=== PATIENT | female | born 1985 | race Caucasian/White ===

== ENCOUNTER 2018-09-06 11:08 | Emergency (ER) | payer OTHER, SELFPAY ==
[2018-09-06 11:09] VITALS: BP 134/78; PULSE 107; RESP 16; TEMP 36.6; O2SAT 98; BMI 36.0
--- NOTE | 2018-09-06 11:37 | ED.DCSUM_ITS ---
- ER Visit Summary Date of Service: 09/06/18 Chief Complaint: Abdominal pain History of Present Illness: The patient is a 32 F with abdominal pain that started around 6:30 AM today. It feels like her contractions with previous pregnancies. She is at 17 weeks. She denies any vaginal bleeding or disc harge. The pain happens about every 6 minutes and last for 1-2 minutes. Patient has a history of high blood pressure and is being treated with labetalol and aspirin. Denies any other symptoms. Physical Examination: Afebrile and vital signs unremarkable except a blood pressure of 134/78 and heart rate of 107. Alert and oriented. No acute distress. Skin appears normal. Heart tachycardic but regular. Lungs clear. Abdomen gravid but nontender. Test Results: We will check labs, urine, heart tones. Emergency Department Course and Treatment: Patient treated with fluids while awaiting results. Will check labs, urine, heart tones and discuss with [employer] STATE. heart tones 148. Blood work all largely unremarkable. Urinalysis unremarkable except for 1+ bacteria. I spoke with Dr. Cruz. She will be down to perform a speculum exam. I notified nursing to prepare the patient. Treatment Plan: As above Disposition: Pending [employer] evaluation Impression: 1. Abdominal pain 2. This note was generated with [employer] dictation software. It may contain incorrect words, spelling, and punctuation that were not noted in review of the chart prior to signing ED Disposition - Plan for ED Patient: Chief Complaint: Referrals: [facility] Doctor,Out of [NON-STAFF] -
[2018-09-06] MEDS: 0.9% Normal Saline 1,000 ML 1000 ML IV (12:13)
[2018-09-06 12:19] LABS: Absolute Lymphocyte Count 0.54 X10^3/ul (0.83-4.51); Absolute Neutrophil Count 5.7 X10^3/uL (2.0-7.7); Differential Indicated SCAN CRITERIA MET; Eosinophil# 0.05 X10^3/uL; Eosinophils% 0.8 % (0-5); Hematocrit 34.9 % (37-47); Hemoglobin 11.6 g/dl (12.0-15.0); Lymphocyte # 0.54 X10^3/ul (4.0); Lymphocyte % 8.2 % (19-41); Mean Corp Hgb Conc 33.2 g/gl (32-36); Mean Corpuscular Hgb 27.6 pg (27.0-32.0); Mean Corpuscular Volume 83.1 fL (81-99); Monocyte# 0.26 X10^3/uL; Neutrophil # 5.71 X10^3/uL (2.7-7.7); POSITIVE COUNT NO; POSITIVE DIFFERENTIAL YES; POSITIVE MORPHOLOGY NO; Platelet Count 183 K/mm3 (150-450); RBC Distribution Width CV 13.7 % (11.6-14.6); RBC Distribution Width SD 40.4 fl (35.1-43.9); White Blood Count 6.6 K/mm3 (4.4-11.0)
[2018-09-06 12:33] LABS: ALB/GLOB Ratio 0.7 RATIO (0.9-2.4); AST(SGOT) 19 U/L (15-37); Alanine Aminotransfer ALT/SGPT 25 U/L (13-56); Albumin, Serum 2.8 g/dL (3.2-5.0); Alkaline Phosphatase 99 U/L (45-117); Anion Gap 8 (5-15); BUN 8 mg/dL (7-18); BUN/Creat Ratio 13.3 RATIO (10-20); Calcium,Total 8.7 mg/dL (8.5-10.1); Chloride 104 mmol/L (98-107); EST Glomerular Filtration Rate 122 mL/min (>60); Est Glom Filt Rate - Afr Amer 148 mL/min (>60); Estimated Creatinine Clearance 117.31 ml/min; Globulin 4.3 g/dL (2.2-4.2); Glucose 91 mg/dL (74-106); Lipase 62 U/L (73-393); Potassium 3.7 mmol/L (3.5-5.1); Protein, Total 7.1 g/dL (6.4-8.2); Sodium Level 138 mmol/L (136-145)
[2018-09-06 12:47] LABS: Mucous, Urine 0 SEEN /hpf (<or=2+); Red Blood Cells-Urine 0 SEEN /hpf (0-5); White Blood Cells 0 SEEN /hpf (0-5)
[2018-09-06 12:56] LABS: Color, Urine Yellow (Yellow); Glucose, Dipstick Normal (Normal); Ketone-Dipstick Negative (Negative); Leukocyte Esterase-Dipstick Negative /ul (Negative); Nitrite-Dipstick Negative (Negative); Occult Blood-Urine Negative /ul (Negative); Protein-Dipstick Negative (Negative); Specific Gravity, Urine 1.015 (1.002-1.030); Urine Bilirubin Dipstick Negative (Negative); Urine Clarity Sl. Cloudy (Clear); Urine Urobilinogen Normal (Normal)
[2018-09-06 13:02] LABS: Squamous Epithelial Cells - UA 0-5 SEEN /hpf (5-10)
[2018-09-06 13:03] LABS: Bacteria 1+ /hpf (None Seen)
--- NOTE | 2018-09-06 13:45 | ED.DEP ---
ED Disposition - Plan for ED Patient: Chief Complaint: Instructions: ED Labor Premature Referrals: Samaria Barnes MD [STAFF PHYSICIAN] -
[2018-09-06 14:41] VITALS: BP 137/78; PULSE 85; RESP 16; TEMP 36.7; O2SAT 100
--- OUTSIDE RECORDS SUMMARY | 2018-10-23 13:12 | XMS RPT_ITS ---
:1985 Author Organization OHIP Care Team Providers Name Role Phone MARY MULLINS Attending Unavailable NEYJCARLOST FOUNTAIN, MARY Referring Unavailable JO SPARKS Attending Unavailable NEYJCARLOST FOUNTAIN, MARY Referring Unavailable NEYJCARLOST FOUNTAIN, MARY Attending Unavailable NEYGO FOUNTAIN, MARY Referring Unavailable DEYSIYGO FOUNTAIN, MARY Referring Unavailable MIKE DELGADO Attending Unavailable BATOOL FOUNTAIN, MARY Attending Unavailable MIKE DELGADO Attending Unavailable BATOOL FOUNTAIN, MARY Attending Unavailable MIKE DELGADO Attending Unavailable KEISHA MCINTYRE Attending Unavailable NEYHART FOUNTAIN, MARY Referring Unavailable NEYHART FOUNTAIN, MARY Attending Unavailable NEYJCARLOST FOUNTAIN, MARY Referring Unavailable JO SPARKS Attending Unavailable NEYHART FOUNTAIN, MARY Referring Unavailable NEYHART FOUNTAIN, MARY Referring Unavailable NEYHART FOUNTAIN, MARY Referring Unavailable Marciano Ramirez Attending Unavailable Mike Delgado Primary Care Unavailable PROBLEMS PROBLEMS DATE TYPE CONDITION / CODE ATTENDING STATUS SOURCE 08/08/2018 Active Encounter for NA Active [facility] Main [place] screening for Repository nuchal translucency / Z36.82(ICD-10) 07/07/2018 Active Obesity NA Active [facility] complicating Main [place] , Repository unspecified trimester / O99.210(ICD-10) 07/25/2018 Active Unspecified NA Active [facility] pre-existing [facility] hypertension Repository complicating , unspecified trimester / O10.919(ICD-10) 07/25/2018 Active Supervision of NA Active [facility] high risk [facility] , Repository unspecified, first trimester / O09.91(ICD-10) 07/25/2018 Active 9 weeks gestation NA Active [facility] of / [facility] [place] Z3A.09(ICD-10) Repository 11/08/2017 Active Unknown / KEISHA MCINTYRE Active [facility] UNK(Unknown) R [facility] Repository PROCEDURES PROCEDURES No Procedure Records FoundRESULTS RESULTS PROGRESS Observed: 09/15/2018 Status: COMPLETED Source: [place] 10:31 AM [facility] REPOSITORY HNO ID: [id number] Author: Jo Sparks Service: (none) Author Type: Physician Type: Progress Notes Filed: 09/15/2018 10:34 AM Note Text: A mccann? fetus in utero with symmetric measurements Adequate growth (AGA). Estimated Date of Delivery: 02/11/19 EGA = 18w5d The anatomy appears normal. There are no evident malformations and /or effusions. No genetic markers are noted. The amniotic fluid volume is within normal limits. The sensitivity of ultrasound in the detection of malformations overall is approximately 35%. RECOMMENDATIONS: - Follow up ultrasound as clinically indicated CNPN Observed: 2018 Status: COMPLETED Source: [place] 12:00 AM [facility] REPOSITORY Telephone (FAMDNA) SHELIA VILLEDA ([id number]) 1985 F Date Time Provider Department 09/13/18 KEISHA MCINTYRE During your visit today, we recorded the following information about you: Cassie Lee Wilfrid 2018 2:11 PM Signed Form on docs desk/basket for review from [facility]. Please review and route back to [place] to be scanned. Mike Delgado MD 2018 7:28 PM Signed Seen in ER at [place] for abn pain Pending GEOMORPHOLOGY TEACHER evaluation Sent for scaning TRK Allergies As of Date: 2018 Noted Allergy Reaction PENICILLINS 07/07/2018 6 - Diarrhea Date Reviewed: 09/05/2018 Reviewed by: Lakeisha Rollins Ma - Fully Assessed Reason for Visit: Received Outside Medical Records [[id number]] Cmt: [facility]-ER Discharge Summary Prescriptions as of 2018 Sig: CHOLECALCIFEROL (VITAMIN D3) * Take 1 capsule by mouth once * LABETALOL 200 MG TABLET TKAE 1/2 TABLET BY MOUTH EVER* VITAMIN,CALCIUM,MINE* Take 1 tablet by mouth. SERTRALINE 50 MG TABLET Take 1 tablet by mouth once d* Problem List As Of Date 2018 Noted Resolved Adjustment disorder with mixed anxiety and depr*INVALID FOR*11/04/2015 Supervision of normal [Z34.90] INVALID FOR*08/21/2015 Chronic hypertension in [O10.919] INVALID FOR*06/06/2017 Vaginal bleeding in patient at less th*INVALID FOR*11/04/2015 More... HTN in , chronic [O10.919] INVALID FOR*11/04/2015 High-risk [O09.90] INVALID FOR*11/04/2015 Elevated LFTs [R94.5] INVALID FOR*11/04/2015 More... Cholestasis of in third trimester [O2*INVALID FOR*11/04/2015 More... Positive GBS test [B95.1] INVALID FOR*11/04/2015 Essential hypertension [I10] INVALID FOR* Anxiety [F41.9] INVALID FOR* Chronic pre-existing hypertension during pregna*INVALID FOR* More... Obesity in [O99.210] INVALID FOR* More... History of anxiety [Z86.59] INVALID FOR* More... Patient requested diagnostic testing [Z01.89] INVALID FOR* More... History of cholestasis during [Z87.59*INVALID FOR* More... Encounter Status:Closed by CASSIE LEE MA on 09/13/18 DISCHARGE INSTRUCTION Observed: 09/06/2018 Status: F Source: [place] 3:36 PM [facility] REPOSITORY [facility] Medical Records Department [address] [place] [address] Discharge Instruction 09/06/18 1345 MR#: [id number] Acct: [id number] Name: SHELIA VILLEDA Rep #: [id number] : 1985 32 From: Marciano Ramirez MD PCP: Mike Delgado Status: DEP ER ED Disposition - Plan for ED Patient: Chief Complaint: Instructions: ED Labor Premature Referrals: Mary Barnes MD [STAFF PHYSICIAN] - What to do if you have Problems For any increased pain, shortness of breath, bleeding, nausea or vomiting, chest pain, or any unexpected problems, contact your Primary Care Provider. Call [facility] ([phone]) or report to the closest Emergency Room. Call 911 if necessary. 09/06/18 1536 <Electronically signed by Marciano Ramirez MD> Date Marciano Ramirez MD Cosigner Signature (If Indicated): Date CC: Mike Delgado EMERGENCY DEPARTMENT Observed: 09/06/2018 Status: F Source: [place] SUMMARY 3:36 PM [facility] REPOSITORY [facility] Medical Records Department [address] [place] [id number] Emergency Department Summary 09/06/18 1136 MR#: [id number] Acct: [id number] Name: SHELIA VILLEDA Rep #: [id number] : 1985 32 From: Marciano Ramirez MD PCP: Mike Delgado Status: DEP ER - ER Visit Summary Date of Service: 09/06/18 Chief Complaint: Abdominal pain History of Present Illness: The patient is a 32 F with abdominal pain that started around 6:30 AM today. It feels like her contractions with previous pregnancies. She is at 17 weeks. She denies any vaginal bleeding or discharge. The pain happens about every 6 minutes and last for 1-2 minutes. Patient has a history of high blood pressure and is being treated with labetalol and aspirin. Denies any other symptoms. Physical Examination: Afebrile and vital signs unremarkable except a blood pressure of 134/78 and heart rate of 107. Alert and oriented. No acute distress. Skin appears normal. Heart tachycardic but regular. Lungs clear. Abdomen gravid but nontender. Test Results: We will check labs, urine, heart tones. Emergency Department Course and Treatment: Patient treated with fluids while awaiting results. Will check labs, urine, heart tones and discuss with REPACKER. heart tones 148. Blood work all largely unremarkable. Urinalysis unremarkable except for 1+ bacteria. I spoke with Dr. Cruz. She will be down to perform a speculum exam. I notified nursing to prepare the patient. Treatment Plan: As above Disposition: Pending REPACKER evaluation Impression: 1. Abdominal pain 2. This note was generated with uPartsation software. It may contain incorrect words, spelling, and punctuation that were not noted in review of the chart prior to signing ED Disposition - Plan for ED Patient: Chief Complaint: Referrals: [facility] Doctor,Out of [NON-STAFF] - What to do if you have Problems For any increased pain, shortness of breath, bleeding, nausea or vomiting, chest pain, or any unexpected problems, contact your Primary Care Provider. Call [facility] ([phone]) or report to the closest Emergency Room. Call 911 if necessary. 09/06/18 1536 <Electronically signed by Marciano Ramirez MD> Date Marciano Ramirez MD Cosigner Signature (If Indicated): Date CC: Mike Delgado URINALYSIS, COMPLETE Collected: 09/06/2018 Status: F Source: [place] 12:35 PM [facility] REPOSITORY Order Comment: Order Date: 09/06/18 How was Urine Obtained? CLEAN CATCH TYPE CODE TESTS RESULT OUT OF RANGE REFERENCE UNITS LAB L400.3000 Yellow COLOR Normal Yellow LAB L400.3050 Clear Normal CLARITY Sl. Cloudy LAB L400.3200 Normal mg/dl Normal GLUCOSE, UR Normal LAB L400.3300 Negative mg/dL Normal BILIRUBIN URINE Negative LAB L400.3400 Negative mg/dl Normal KETONE UR Negative LAB L400.3465 1.002-1.030 Normal SP.GR. DIPSTX 1.015 LAB L400.3550 5.0 - 8.0 pH UR Normal 6.0 LAB L400.3600 Negative mg/dl PROT Normal DIPSTX Negative LAB L400.3700 Normal mg/dl Normal UROBILI Normal LAB L400.3750 Negative Normal NITRITE UR Negative LAB L400.3780 Negative /ul Normal OCCULT BLOOD-UR Negative LAB L400.3800 Negative /ul LEUK Normal ESTERASE Negative LAB L400.4050 0-5 /hpf WBC 0 Normal SEEN LAB L400.4100 0-5 /hpf 0 Normal RBC-UA SEEN LAB L400.4150 5-10 /hpf SQUAM Normal EPI 0-5 SEEN LAB L400.4300 None Seen /hpf 1+ Normal BACTERIA LAB L400.4350 <or=2+ /hpf 0 Normal MUCUS, URINE SEEN Performed By: #### L400.0001 #### [facility] [address] [place], [place], [address] CBC W/DIFF, AUTOMATED Collected: 09/06/2018 Status: F Source: [place] 12:00 PM [facility] REPOSITORY TYPE CODE TESTS RESULT OUT OF RANGE REFERENCE UNITS LAB L100.1000 4.4-11.0 K/mm3 Normal WBC 6.6 LAB L100.1200 4.2-5.4 M/mm3 Normal RBC 4.20 LAB L100.1300 12.0-15.0 g/dl Low HGB 11.6 LAB L100.1400 37-47 % Low HCT 34.9 LAB L100.1500 81-99 fL Normal MCV 83.1 LAB L100.1600 27.0-32.0 pg Normal MCH 27.6 LAB L100.1700 32-36 g/gl Normal MCHC 33.2 LAB L100.1810 11.6-14.6 % Normal RDW CV 13.7 LAB L100.1820 35.1-43.9 fl Normal RDW SD 40.4 LAB L100.1900 150-450 K/mm3 Normal PLT 183 LAB L100.2000 6.2-12.0 fl Normal MPV 11.0 LAB L100.2100 47-70 % High NEUT% 87.0 LAB L100.2200 19-41 % Low LY% 8.2 LAB L100.2300 0-10 % Normal MONO% 4.0 LAB L100.2400 0-5 % Normal EO% 0.8 LAB L100.2500 0-1 % Normal BASO% 0.0 LAB L100.2550 0.0-0.9 % Normal IM GRAN % 0.000 Result Comment: IG% - Immature Granulocytes (promyelocytes, myelocytes and metamyelocytes) > 1% indicates that a LEFT SHIFT is Present. LAB L100.2620 2.0-7.7 X10 3/uL Normal Absolute Neut 5.7 LAB L100.2720 0.83-4.51 X10 3/ul Low Absolute Lymph 0.54 Performed By: #### L100.0100 #### [facility] [address] [place], [address] COMPREHENSIVE METABOLIC Collected: 09/06/2018 Status: F Source: [facility] 12:00 PM [facility] REPOSITORY TYPE CODE TESTS RESULT OUT OF RANGE REFERENCE UNITS LAB L501.0100 74-106 mg/dL Normal GLU 91 Result Comment: Please note revised GLUCOSE reference range effective 2017. LAB L501.1000 7-18 mg/dL Normal BUN 8 LAB L501.1100 0.55-1.02 mg/dL Normal CREAT,SERUM 0.60 Result Comment: The validity of the calculated GFR AND GFRAA in patients over 70 years has not been determined. Clinical correlation is essential. LAB L501.1110 >60 mL/min Normal EST GFR 122 Result Comment: Non- GFR Calc LAB L501.1115 >60 mL/min Normal EST GFR - AA 148 Result Comment: GFR Calc LAB L501.1255 ml/min Normal Estimated CRCL 117.31 LAB L501.1300 10-20 RATIO BUN/CRE Normal 13.3 LAB L501.1500 6.4-8. g/dL 2 T PROT Normal 7.1 LAB L501.1800 3.2-5. g/dL Low 0 ALB 2.8 LAB L501.1950 2.2-4. g/dL High 2 GLOB 4.3 LAB L501.2000 0.9-2. RATIO Low 4 A/G 0.7 LAB L501.2200 8.5-10 mg/dL .1 CA Normal 8.7 LAB L501.4100 15-37 U/L AST Normal 19 LAB L501.4305 45-117 U/L ALK P Normal 99 LAB L501.4405 13-56 U/L ALT Normal 25 LAB L501.4600 0.20-1 mg/dL .00 T BILI Normal 0.30 LAB L501.5300 136-14 mmol/L 5 NA Normal 138 LAB L501.5600 3.5-5. mmol/L 1 K Normal 3.7 LAB L501.5900 98-107 mmol/L CL Normal 104 LAB L501.6100 21.0-3 mmol/L 2.0 CO2 Normal 26.0 LAB L501.6200 5-15 GAP Normal 8 Performed By: #### L500.4050, L501.2450 #### [facility] [address] [place], [place], [address] LIPASE Collected: 09/06/2018 Status: F Source: [place] 12:00 PM [facility] REPOSITORY TYPE CODE TESTS RESULT OUT OF REFERENCE UNITS RANGE LAB L501.2450 73-393 U/L Low LIPASE 62 Performed By: #### L500.4050, L501.2450 #### [facility] [address] [place], [address] SEQUENT SCRN SECOND Collected: 09/05/2018 Status: F Source: [facility] PATIENTS ONLY 3:32 PM [facility] REPOSITORY TYPE CODE TESTS RESULT OUT OF REFERENCE UNITS RANGE LAB SE1PAP MoM 0.56 SE1 EMMETT A LAB SE2AFP MoM 1.04 SE2 AFP LAB SE2HCG MoM 3.14 SE2 hCG LAB SE2UE3 MoM 1.18 SE2 Unconj uE3 LAB SE2INH MoM 1.76 SE2 Dimrc Inhibin A LAB SE1HCG MoM 1.65 SE1 hCG LAB SE2INT Screen Negative SE2 Interp Screen Negative LAB SE2SDN SE2 Scrn Rsk 1:8700 Dn Synd LAB SE2ADN 1:540 SE2 Age Rsk Dn Snyd LAB SE2STS SE2 Scr Rsk <1:08650 Trsmy 13 LAB SE2STR SE2 Scr Rsk <1:59105 Trsmy18 LAB SE2SON SE2 Scr Rsk 1:7700 ONTD LAB SE2RS View Seq Scrn results in Second Trim Scanned Documents link when available. LAB SEQLRV SEQ Staff Reviewed by Review Christian Fernandez MD, PhD ([id number]) Performed By: #### SEQL2 #### [facility] [address] [place] [id number] PROGRESS Observed: 08/08/2018 Status: COMPLETED Source: [place] 3:12 PM [facility] REPOSITORY HNO ID: [id number] Author: Jo Sparks Service: (none) Author Type: Physician Type: Progress Notes Filed: 08/08/2018 3:13 PM Note Text: A single intrauterine gestational sac is noted with a regular outline. There is no decidual hemorrhage. The yolk sac is visualized and shows normal shape and echogenicity. A living single fetus is noted. The heart rate is within normal range. The CRL corresponds to the gestational age. Estimated Date of Delivery: 02/11/19 EGA = 13w2d Negative NT screen for Trisomy 21. The sensitivity of nuchal translucency measurement for Trisomy 21 is ~60%. The anatomy appears normal in the areas visualized. RECOMMENDATIONS: - The patient requested the sequential screening. The test has been ordered - Ultrasound examination at 18 to 20 weeks SEQUENT SCRN FIRST Collected: 08/08/2018 Status: F Source: [place] [facility] PATIENTS ONLY 2:48 PM [facility] REPOSITORY TYPE CODE TESTS RESULT OUT OF REFERENCE UNITS RANGE LAB SE1PAP MoM 0.56 SE1 EMMETT A LAB SE1HCG MoM 1.65 SE1 hCG LAB SE1INT Final result pending second Final trimester SE1 result pending sample Interp second trimester sample LAB SE1SDN 1:560 SE1 Scrn Rsk Dn Synd LAB SE1ADN 1:400 SE1 Age Rsk Dn Synd LAB SE1STR SE1 Scr <1:00684 Rsk Trsmy18 LAB SE1ATR SE1 Age 1:1700 Rsk Trsmy18 LAB SE1RS View Seq Scrn results in First Trim Scanned Documents link when available. LAB SEQLRV SEQ Staff Reviewed by Review Christian Fernandez MD, PhD ([id number]) Performed By: #### SEQL1 #### [facility] [address] [place], [place] [address] PROGRESS Observed: 08/08/2018 Status: COMPLETED Source: [place] 1:33 PM [facility] REPOSITORY HNO ID: [id number] Author: Lakeisha Rollins Ma Service: (none) Author Type: (none) Type: Progress Notes Filed: 08/08/2018 2:38 PM Note Text: 32 year old female here for INACTIVATED INFLUENZA VACCINE. [id number] Season Patient is identified by name and date of : Yes [] CONTRAINDICATIONS color enhanced section Age less than 6 months? No Allergy to eggs, chicken, chicken feathers, or chicken dander? No Allergy to thimerosal (a preservative) or formaldehyde, gelatin? No History of severe reaction to any vaccine component or a previous dose of influenza vaccination? No History of Guillain-[place] Syndrome within 6 weeks after a previous influenza vaccine? No Patient is not moderately or severely ill? No Current temperature greater or equal to 100.4F? No History of Bone Marrow Transplant prior 6 months or solid organ transplant in the past 3 months ? No History of fainting after a prior injection or medical procedure? No- ? If patient has fainted in the past, the CDC recommends sitting or lying down for 15 minutes after the vaccination. [] VERIFICATION color enhanced section Was the answer Yes for any of the above contraindications? No contraindications present. Acceptable to proceed with vaccine. Patient/guardian agrees the above answers are true to the best of their knowledge? Yes Flu vaccine information sheet given? Yes [facility] for details of immunizations adminstered today. Patient age: [age] year old For The 0406-1019 Flu Season 6-35 months old: Fluzone 0.25 ml - IM (Preservative Free) 3 years of age: Fluzone 0.5 ml - IM (Preservative Free) 3 years and older: Fluzone 0.5 ml- IM-(with Preservatives) 65+ years old: 2-49 years old Fluzone High-Dose 0.5 ml - IM (Preservative Free) FLUMIST- intranasal REMEMBER: If patient is less than 9 years of age and this is the first vaccine of Influenza to be received in any flu season, they should receive a second dose in one months time. PERIOD AND VOLUME Collected: 07/25/2018 Status: F Source: [place] 7:35 AM [facility] REPOSITORY TYPE CODE TESTS RESULT OUT OF REFERENCE UNITS RANGE LAB PER hr Period 24 LAB VOL mL Volume 900 Performed By: #### UTP24 #### [facility] [address] [place] [id number] PROTEIN URINE 24 HR Collected: 07/25/2018 Status: F Source: [place] 7:35 AM [facility] REPOSITORY TYPE CODE TESTS RESULT OUT OF REFERENCE UNITS RANGE LAB TP24GM <0.16 gm/24 Hr Protein Urine 0.07 Performed By: #### UTP24 #### [facility] [address] [place] [address] PROGRESS Observed: 07/15/2018 Status: COMPLETED Source: [place] 3:05 PM [facility] REPOSITORY HNO ID: [id number] Author: Mike Delgado Service: (none) Author Type: Physician Type: Progress Notes Filed: 07/15/2018 3:15 PM Note Text: Shelia Villeda is a 32 year old female presenting for Established Patient (Pt states here for med review) She is here for follow up She has been taking the zoloft Does seem to be working well She just feels calmer Better able to deal with things Has no side effects Less anxiety, less stress No issues with BP Has been doing the lebatalol with no issues Patient has been trying to watch her diet and remain active Patient is currently and is due in January Has discussed above medications with OB and they are okay HISTORIES: PAST MEDICAL HISTORY Diagnosis Date - Anemia - Cholestasis of in third trimester 08/15/2015 - Chronic hypertension in 04/01/2015 - H/O: depression took Wellbutrin in the past - History of anxiety - Hypertension - Mental disorder PAST SURGICAL HISTORY Procedure Laterality Date - EXTRACTION ERUPTED TOOTH/EXR 2010 wisdom teeth x 3 FAMILY HISTORY Problem Relation Age of Onset - Cancer Mother ovarian CA - Alcohol/Drug Father - Psychiatry Father [place] Vet - Hypertension Father - Heart Father - other (atherosclerosis) Father - Hypertension Sister - Heart Maternal Grandmother - No Known Problems Maternal Grandfather - Diabetes Paternal Grandmother - Cancer Paternal Grandmother - Colon Cancer Paternal Grandfather Social History: Social History Substance Use Topics - Smoking status: Never Smoker - Smokeless tobacco: Never Used - Alcohol use 1.5 oz/week 1 Mixed Drinks per week Comment: Rare-NONE WHILE Allergies: ALLERGIES Allergen Reactions - Penicillins Diarrhea Medications: sertraline (ZOLOFT) 50 mg tablet Take 1 tablet by mouth once daily. labetalol (TRANDATE) 200 mg tablet TKAE 1/2 TABLET BY MOUTH EVERY MORNING AND TAKE 1 TABLET EVERY EVENING Cholecalciferol, Vitamin D3, (VITAMIN D-3) 2,000 unit cap Take 1 capsule by mouth once daily. Arfppbzd-Zm-Vug-Fe-FA ( VITAMIN) tab Take 1 tablet by mouth. labetalol (TRANDATE) 200 mg tablet TKAE 1/2 TABLET BY MOUTH EVERY MORNING AND TAKE 1 TABLET EVERY EVENING copper (PARAGARD T 380A) 380 square mm IUD INSERTED IN THE OFFICE REVIEW OF SYSTEMS GENERAL: No weight loss, malaise or fevers RESPIRATORY: Negative for cough, hemoptysis, wheezing, COPD, dyspnea or shortness of breath CARDIOVASCULAR: Negative for chest pain, leg swelling, hypertension, CHF or palpitations PSYCH: Negative for sleep disturbance, mood disorder and recent psychosocial stressors PHYSICAL EXAMINATION: BP 126/80 Pulse 91 Temp 36.7 ?C (98 ?F) (Oral) Resp 18 Wt 94.6 kg (208 lb 8 oz) LMP 05/07/2018 (Exact Date) SpO2 98% BMI 35.79 kg/m? General Appearance: Well appearing, alert, in no acute distress, well-hydrated, well nourished.. Psych: Appropriate mood and affect, maintains good eye contact, answers questions appropriately, does not appear stressed or anxious. ASSESSMENT/PLAN: 1. Essential hypertension - ICD9: 401.9, ICD10: I10 (primary diagnosis) Blood pressures under good control Continue same dose of labetalol Continue following regularly with blood pressure monitoring with GEOMORPHOLOGY TEACHER 2. Anxiety - ICD9: 300.00, ICD10: F41.9 Patient has been doing very well with the Zoloft 50 mg Feels much better under control with less stress and anxiety Continue with same dose for now Okay with OB with regards to taking this Mike Delgado MD Preventive health: Patient will get flu shot with her next OB visit CNOV Observed: 07/15/2018 Status: COMPLETED Source: [place] 3:00 PM [facility] REPOSITORY Office Visit (FAMDNA) SHELIA VILLEDA ([id number]) 1985 F Date Time Provider Department 07/15/18 3:00 PM MIKE DELGADO During your visit today, we recorded the following information about you: Temperature Pulse Respiration Blood pressure 98 degrees 91/minute 18/minute 126/80 Weight 94.6 kg Cassie Lee Ma 07/15/2018 2:58 PM Signed Patient presents with: Established Patient: Pt states here for med review Cassie Lee Ma 07/15/2018 3:15 PM Signed BP CONTROLLED (<130/80) due on 2004 INFLUENZA(1) due on 05/28/2018 Mike Delgado MD 07/15/2018 3:15 PM Signed Shelia [place] Christiana is a 32 year old female presenting for Established Patient (Pt states here for med review) She is here for follow up She has been taking the zoloft Does seem to be working well She just feels calmer Better able to deal with things Has no side effects Less anxiety, less stress No issues with BP Has been doing the lebatalol with no issues Patient has been trying to watch her diet and remain active Patient is currently and is due in January Has discussed above medications with OB and they are okay HISTORIES: PAST MEDICAL HISTORY Diagnosis Date - Anemia - Cholestasis of in third trimester 08/15/2015 - Chronic hypertension in 04/01/2015 - H/O: depression took Wellbutrin in the past - History of anxiety - Hypertension - Mental disorder PAST SURGICAL HISTORY Procedure Laterality Date - EXTRACTION ERUPTED TOOTH/EXR 2011 wisdom teeth x 3 FAMILY HISTORY Problem Relation Age of Onset - Cancer Mother ovarian CA - Alcohol/Drug Father - Psychiatry Father [place] Vet - Hypertension Father - Heart Father - other (atherosclerosis) Father - Hypertension Sister - Heart Maternal Grandmother - No Known Problems Maternal Grandfather - Diabetes Paternal Grandmother - Cancer Paternal Grandmother - Colon Cancer Paternal Grandfather Social History: Social History Substance Use Topics - Smoking status: Never Smoker - Smokeless tobacco: Never Used - Alcohol use 1.5 oz/week 1 Mixed Drinks per week Comment: Rare-NONE WHILE Allergies: ALLERGIES Allergen Reactions - Penicillins Diarrhea Medications: sertraline (ZOLOFT) 50 mg tablet Take 1 tablet by mouth once daily. labetalol (TRANDATE) 200 mg tablet TKAE 1/2 TABLET BY MOUTH EVERY MORNING AND TAKE 1 TABLET EVERY EVENING Cholecalciferol, Vitamin D3, (VITAMIN D-3) 2,000 unit cap Take 1 capsule by mouth once daily. Knvatyhe-Nc-Yrm-Fe-FA ( VITAMIN) tab Take 1 tablet by mouth. labetalol (TRANDATE) 200 mg tablet TKAE 1/2 TABLET BY MOUTH EVERY MORNING AND TAKE 1 TABLET EVERY EVENING copper (PARAGARD T 380A) 380 square mm IUD INSERTED IN THE OFFICE REVIEW OF SYSTEMS GENERAL: No weight loss, malaise or fevers RESPIRATORY: Negative for cough, hemoptysis, wheezing, COPD, dyspnea or shortness of breath CARDIOVASCULAR: Negative for chest pain, leg swelling, hypertension, CHF or palpitations PSYCH: Negative for sleep disturbance, mood disorder and recent psychosocial stressors PHYSICAL EXAMINATION: BP 126/80 Pulse 91 Temp 36.7 ?C (98 ?F) (Oral) Resp 18 Wt 94.6 kg (208 lb 8 oz) LMP 05/07/2018 (Exact Date) SpO2 98% BMI 35.79 kg/m? General Appearance: Well appearing, alert, in no acute distress, well-hydrated, well nourished.. Psych: Appropriate mood and affect, maintains good eye contact, answers questions appropriately, does not appear stressed or anxious. ASSESSMENT/PLAN: 1. Essential hypertension - ICD9: 401.9, ICD10: I10 (primary diagnosis) Blood pressures under good control Continue same dose of labetalol Continue following regularly with blood pressure monitoring with GEOMORPHOLOGY TEACHER 2. Anxiety - ICD9: 300.00, ICD10: F41.9 Patient has been doing very well with the Zoloft 50 mg Feels much better under control with less stress and anxiety Continue with same dose for now Okay with OB with regards to taking this Mike Delgado MD Preventive health: Patient will get flu shot with her next OB visit Mike Delgado MD 07/15/2018 3:10 PM Signed Follow up in February Call for refills if needed Get flu vaccine with GEOMORPHOLOGY TEACHER Referring Provider: SELF [200] Allergies As of Date: 07/15/2018 Noted Allergy Reaction PENICILLINS 07/07/2018 6 - Diarrhea Date Reviewed: 07/15/2018 Reviewed by: Cassie Lee Ma - Fully Assessed Reason for Visit: Established Patient [175] Cmt: Pt states here for med review Primary Visit Diagnosis:Essential hypertension [I10] Other Visit Diagnosis:Anxiety [F41.9] Prescriptions as of 07/15/2018 Sig: SERTRALINE 50 MG TABLET Take 1 tablet by mouth once d* LABETALOL 200 MG TABLET TKAE 1/2 TABLET BY MOUTH EVER* CHOLECALCIFEROL (VITAMIN D3) * Take 1 capsule by mouth once * VITAMIN,CALCIUM,MINE* Take 1 tablet by mouth. Problem List As Of Date 07/15/2018 Noted Resolved Adjustment disorder with mixed anxiety and depr*INVALID FOR*11/04/2015 Supervision of normal [Z34.90] INVALID FOR*08/21/2015 Chronic hypertension in [O10.919] INVALID FOR*06/06/2017 Vaginal bleeding in patient at less th*INVALID FOR*11/04/2015 More... HTN in , chronic [O10.919] INVALID FOR*11/04/2015 High-risk [O09.90] INVALID FOR*11/04/2015 Elevated LFTs [R94.5] INVALID FOR*11/04/2015 More... Cholestasis of in third trimester [O2*INVALID FOR*11/04/2015 More... Positive GBS test [B95.1] INVALID FOR*11/04/2015 Essential hypertension [I10] INVALID FOR* Anxiety [F41.9] INVALID FOR* Chronic pre-existing hypertension during pregna*INVALID FOR* More... Obesity in [O99.210] INVALID FOR* More... History of anxiety [Z86.59] INVALID FOR* More... Patient requested diagnostic testing [Z01.89] INVALID FOR* More... Other instructions from your clinician: Follow up in February Call for refills if needed Get flu vaccine with GEOMORPHOLOGY TEACHER Visit Notes: >> Cassie Lee Ma WedJul 15, 2018 2:56 PM Status: Signed Patient presents with: Established Patient: Pt states here for med review Medications Discontinued During This Encounter copper (PARAGARD T 380A) 380 square * 1 In* 0 11/19/2015 07/15/2018 Class: In Office Sig: INSERTED IN THE OFFICE Patient not taking: Reported on 04/07/2018 Disc: Reason for discontinue is not on file. labetalol (TRANDATE) 200 mg tablet 135 * 0 06/06/2018 07/15/2018 Sig: TKAE 1/2 TABLET BY MOUTH EVERY MORNING AND TAKE 1 TABLET EVERY EVENING Disc: Reason for discontinue is not on file. Disposition: Return in about 8 months (around 03/15/2019). Follow-up and Disposition History Recorded Encounter Status:Closed by MIKE DELGADO MD on 07/15/18 PROGRESS Observed: 07/15/2018 Status: COMPLETED Source: [place] 2:56 PM [facility] REPOSITORY HNO ID: [id number] Author: Cassie Lee Ma Service: (none) Author Type: (none) Type: Progress Notes Filed: 07/15/2018 3:15 PM Note Text: BP CONTROLLED (<130/80) due on 2004 INFLUENZA(1) due on 05/28/2018 CBC Collected: 07/13/2018 Status: F Source: [place] 11:12 AM [facility] REPOSITORY TYPE CODE TESTS RESULT OUT OF REFERENCE UNITS RANGE LAB WBC 3.70-11.00 k/uL WBC 6.71 LAB RBC 3.90-5.20 m/uL RBC 4.59 LAB HGB 11.5-15.5 g/dL Hemoglobin 12.6 LAB HCT 36.0-46.0 % Hematocrit 39.5 LAB MCV 80.0-100.0 fL MCV 86.1 LAB MCH 26.0-34.0 pG MCH 27.5 LAB MCHC 30.5-36.0 g/dL MCHC 31.9 LAB RDWCV 11.5-15.0 % RDW-CV 13.6 LAB PLTCT 150-400 k/uL Platelet Count 242 LAB MPV 9.0-12.7 fL MPV 11.9 LAB ABSNUC <0.01 k/uL Absolute nRBC <0.01 Performed By: #### CBC, HFP, HBSAG, HIV12C, RUBIGG, SYPHGX #### [place] [id number] [place] [address] HEPATIC FUNCTN PANEL Collected: 07/13/2018 Status: F Source: [place] 11:12 AM [facility] REPOSITORY TYPE CODE TESTS RESULT OUT OF REFERENCE UNITS RANGE LAB ALB 3.9-4.9 g/dL Albumin 4.3 LAB TBIL 0.2-1.3 mg/dL Bilirubin, Total 0.3 LAB CBIL <0.2 mg/dL Bilirubin,Conjuga <0.2 demarco LAB ALKP 34-123 U/L Alkaline Phosphatase 77 LAB AST 13-35 U/L AST 22 LAB ALT 7-38 U/L ALT 12 LAB TP 6.3-8.0 g/dL Protein, Total 7.7 Performed By: #### CBC, HFP, HBSAG, HIV12C, RUBIGG, SYPHGX #### [place] [address] [place] [address] HEPATITIS B SURF. AG Collected: 07/13/2018 Status: F Source: [place] 11:12 AM [facility] REPOSITORY TYPE CODE TESTS RESULT OUT OF REFERENCE UNITS RANGE LAB HBSAG Negative Hepatitis B Negative Surf. Ag Performed By: #### CBC, HFP, HBSAG, HIV12C, RUBIGG, SYPHGX #### [place] [address] [place], [place] [address] HIV 12 COMBO (AG/AB) Collected: 07/13/2018 Status: F Source: [place] 11:12 AM [facility] REPOSITORY TYPE CODE TESTS RESULT OUT OF REFERENCE UNITS RANGE LAB HVAGAB Non Reactive HIV Non Reactive 12 Ag/Ab Result Comment: (NOTE) HIV Information: [place] Rev. Code 3701.243(E): This information has been disclosed to you from confidential records protected from disclosure by state law. You shall make no further disclosure of this information without the specific, written, and informed release of the individual to whom it pertains, or as otherwise permitted by state law. A general authorization for the release of medical or other information is not sufficient for the purpose of the release of HIV test results or diagnoses. Performed By: #### CBC, HFP, HBSAG, HIV12C, RUBIGG, SYPHGX #### [facility] [address] [place] [address] RUBELLA IGG ANTIBODY Collected: 07/13/2018 Status: F Source: [place] 11:12 [facility] REPOSITORY TYPE CODE TESTS RESULT OUT OF RANGE REFERENCE UNITS LAB RUBGQL Negative Abnormal Rubella IgG Positive Alert Ab, Qual Result Comment: Sample is considered positive for IgG antibodies to rubella virus. A positive result indicates previous exposure to Rubella virus or vaccination. LAB RUBQNT Index Value Rubella IgG Ab 2.42 Result Comment: Index values are interpreted as follows: Negative specimens <0.90 Equivocol specimens 0.90 to 0.99 Positive specimens >0.99 The magnitude of the measured result is not indicative of the amount of antibody present. Performed By: #### CBC, HFP, HBSAG, HIV12C, RUBIGG, SYPHGX #### [facility] [place] [address] SYPHILIS IGG WITH Collected: 07/13/2018 Status: F Source: [facility] 11:12 AM [facility] REPOSITORY TYPE CODE TESTS RESULT OUT OF REFERENCE UNITS RANGE LAB SYPHQL Nonreactive Syphilis IgG, Nonreactive Qual Result Comment: No serological evidence of infection with T. pallidum. LAB SYPHLG AI Syphilis IgG <0.2 Result Comment: Antibody index is interpreted as follows: Non reactive SPECIMENS <=0.8 Weak reactive SPECIMENS 0.9 to 5.9 Reactive SPECIMENS >=6.0 Performed By: #### CBC, HFP, HBSAG, HIV12C, RUBIGG, SYPHGX #### [facility] [address] [place] [address] 50G, 1HR GEST. Collected: 07/13/2018 Status: F Source: [place] GSCRN 11:12 AM [facility] REPOSITORY TYPE CODE TESTS RESULT OUT OF REFERENCE UNITS RANGE LAB GLUP 74-134 mg/dL Glucose 119 Screen, Preg Result Comment: [place] [employer] Gynec[employer] (Aguirre/Coustan) guidelines state a gestational diabetes mellitus positive screen is made, in women not previously diagnosed with overt diabetes, when the 1 hr plasma glucose level is equal to or above 140 mg/dL. The [facility] Graphic [facility] recommends a 135 mg/dL cutoff. Performed By: #### GLTGST #### [place] [address] [place] [id number] TYPE AND SCR,PRENATL Collected: 07/13/2018 Status: F Source: [place] 11:12 AM [facility] REPOSITORY TYPE CODE TESTS RESULT OUT OF REFERENCE UNITS RANGE LAB %ABR A ABO/RH(D) POSITIVE LAB % Antibody NEG Screen Performed By: #### TSPN #### [place] [address] [place] [address] TOXICOLOGY SCREEN,UR Collected: 07/13/2018 Status: F Source: [place] 11:00 AM [facility] REPOSITORY TYPE CODE TESTS RESULT OUT OF REFERENCE UNITS RANGE LAB UPCP2 Negative Negative Phencyclidin e, Urine Result Comment: Cutoff threshold at 25 ng/mL. LAB UBENZ2 Negative Benzodiazepines, Ur Negative Result Comment: Cutoff threshold at 200 ng/mL. LAB UCOC2 Negative Cocaine, Negative Urine Result Comment: Cutoff threshold at 300 ng/mL. LAB UAMPH2 Negative Amphetamines, Urine Negative Result Comment: Cutoff threshold at 1000 ng/mL. LAB UTHC2 Negative Cannabinoids, Urine Negative Result Comment: Cutoff threshold at 50 ng/mL. LAB UOPI2 Negative Opiates, Negative Urine Result Comment: Cutoff threshold at 300 ng/mL. LAB UBARB2 Negative Barbiturates, Urine Negative Result Comment: Cutoff threshold at 200 ng/mL. LAB UETOH <11 mg/dL <11 Ethanol, Urine LAB UOXYC Negative Oxycodone, Negative Urine Result Comment: Cutoff threshold at 100 ng/mL. Comment: Immunoassay screen only. Cross reactivity with other substances can occur with immunoassay screening. Detection of any drug(s) in this urine toxicology panel is presumptive only. These tests are for med ical purposes only and should not be used for compliance monitoring, legal, or forensic use. Samples should be within normal physiological conditions (e.g. pH). This assay does not include adulteration/specimen validity testing. In clinical settings, confirmatory testing is at the practitioner's discretion [1]. If clinically indicated, confirmation by high specificity, quantitative methodology, which includes adulteration/spec imen validity testing, may be requested on the same specimen through Client Services ([phone]) if contacted within 48 hours of initial testing. [1]Substance Abuse and Mental Health Services Administration (2012). Clinical Drug Testing in Primary Care Technical Assistance Publication Series 32. Department of Health and Human Services, [place], p.10. These tests were developed and their performance characteristics determined by [facility]'s Mansoor Agustin [facility] ( [facility]). They have not been cleared or a pproved by the FDA. [facility] is regulated under CLIA as qualified to perform high complexity testing. These tests are used for clinical purposes. They should not be regarded as investigational or for research. Performed By: #### UTOX2 #### [facility] [address] [place] [id number] Observed: 07/13/2018 Status: F Source: [place] URINE CULTURE 11:00 AM [facility] REPOSITORY Sp. Request/Comment: - Best Practice Alert: To ensure optimal transport conditions and accurate culture results transfer urine specimens to [place] top C and S preservative tube. Culture Result - <10,000 CFU/ml Normal urogenital marti Performed By: #### URCUL #### [place] [address] GC/CHLAMYDIA AMPLIF Collected: 07/13/2018 Status: F Source: [place] 10:44 AM [facility] REPOSITORY TYPE CODE TESTS RESULT OUT OF REFERENCE UNITS RANGE LAB GCCTSR GC/Chlam Amp [facility]erv[facility] Source LAB GCAMPL GC Negative Amplification for Neisseria gonorrhoeae by amplification. LAB CLAMPL Chlamydia Negative Amplif for Chlamydia trachomatis by amplification. Performed By: #### GCCT #### [facility] [address] [place] [id number] PROGRESS Observed: 07/13/2018 Status: COMPLETED Source: [place] 10:11 AM [facility] REPOSITORY HNO ID: [id number] Author: Mary Fountain Service: (none) Author Type: Physician Type: Progress Notes Filed: 07/13/2018 11:02 AM Note Text: INITIAL OB ASSESSMENT OB Provider: Mary Fountain MD HPI: Shelia Villeda is a 32 year old female here to establish Obstetrical Care. Patient's last menstrual period was 05/07/2018 (exact date). from OB Dating Form. Cycle length: 30 days Complaints: None was planned. Obstetric History T1 L1 SAB0 TAB0 Ectopic0 Multiple0 Live Births1 Prior : never History of 4th degree laceration: No Patient's Risk Screening for delivery: History of abnormal pap: No Prior treatment for cervical dysplasia: none. 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 Patient BMI over 30? 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 sertraline (ZOLOFT) 50 mg tablet Take 1 tablet by mouth once daily. labetalol (TRANDATE) 200 mg tablet TKAE 1/2 TABLET BY MOUTH EVERY MORNING AND TAKE 1 TABLET EVERY EVENING labetalol (TRANDATE) 200 mg tablet TKAE 1/2 TABLET BY MOUTH EVERY MORNING AND TAKE 1 TABLET EVERY EVENING Cholecalciferol, Vitamin D3, (VITAMIN D-3) 2,000 unit cap Take 1 capsule by mouth once daily. copper (PARAGARD T 380A) 380 square mm IUD INSERTED IN THE OFFICE (Patient not taking: Reported on 04/07/2018 ) No current facility-administered medications on file prior to visit. Review of Systems: GENERAL: Negative for: Fever or Chills HEENT: Negative for: Headache, Impaired Vision, Ringing in Ears, Nosebleeds NECK: Negative for: Swelling, Pain, Stiffness RESPIRATORY: Negative for: Cough, Shortness of breath, Wheezing GASTROINTESTINAL: Negative for: Heartburn, Constipation, Diarrhea, Blood in stool, Vomiting MUSCULOSKELETAL: Negative for: Muscle or joint pain, stiffness, Joint swelling NEUROLOGIC/PSYCHIATRIC: anxiety- well controlled with zoloft. SKIN: Negative for: Rash, Itching GENITOURINARY: Negative for: vaginal itching, vaginal discharge, hematuria or dysuria PHYSICAL EXAM: BP 116/82 Ht 5' 4 (1.63m) Wt 204 lb (92.5kg) LMP 05/07/2018 BMI 35.00 kg/(m2). GENERAL: pleasant female in no apparent distress DERMATOLOGY: Normal, without lesions, non-icteric and non-hirsute NECK: Supple, full range of motion, no adenopathy BREAST: soft, non-tender, symmetric, no dominant mass, normal nipple-areolar complex, no lymphadenopathy and no nipple discharge ABDOMEN: soft, non-tender and no masses NEURO: alert and oriented x3,exam grossly non-focal PELVIS: External genitalia normal without lesions. Perineal body intact. No vaginal or cervical lesions. Cervix closed. Uterus 9 week size. No adnexal masses or tenderness. Clinical Pelvimetry: Pelvimetry clinically assessed as adequate Limited OB ultrasound exam: single intrauterine and positive cardiac activity ASSESSMENT: 32 year old at 9.4 wks gestational age PLAN: 1) Patient oriented to practice. Discussed nutrition, folic acid supplementation, dietary guidelines, exercise, smoking, alcohol, caffeine, and drug use. Discussed routine OB labs including STD/HIV. Discussed aneuploidy screening options including serum screening and nuchal translucency. 2) h/o CHTN- baseline PRE E labs ordered 3) baby ASA reviewed starting 12 weeks 4) early GCT ordered Follow up in 4 weeks or sooner prn. Mary Barnes MD PROGRESS Observed: 07/07/2018 Status: COMPLETED Source: [place] 10:07 AM [facility] REPOSITORY HNO ID: [id number] Author: Pippa Bernstein RN Service: (none) Author Type: (none) Type: Progress Notes Filed: 07/07/2018 10:16 AM Note Text: #: 1, Date: 09/24/15, Sex: Male, Weight: 7 lb 5 oz (3.317 kg), GA: 37w0d, Delivery: Vaginal, Spontaneous Delivery, Apgar1: None, Apgar5: None, Living: Living, Comments: pitocin induction, cholestasis, prolonged first stage labor, EBL 350cc #: 2, Date: None, Sex: None, Weight: None, GA: None, Delivery: None, Apgar1: None, Apgar5: None, Living: None, Comments: None CNNURSE Observed: 07/07/2018 Status: COMPLETED Source: [place] 7:30 AM [facility] REPOSITORY Nurse Visit (WOOB) SHELIA VILLEDA ([id number]) 1985 F Date Time Provider Department 07/07/18 7:30 AM NURSE PNOB [facility]OOB During your visit today, we recorded the following information about you: Last Period 05/07/18 Pippa Bernstein RN 07/07/2018 7:57 AM Signed SEQUENTIAL SCREENINGS The [facility] offers sequential screenings for women who are interested in screenings for chromosomal abnormalities and certain defects during a . The sequential screen combines ultrasound and blood tests to determine the risk of chromosomal abnormalities, including Down's Syndrome (Trisomy 21) and Trisomy 18, as well as open neural tube defects including spina bifida. Ultrasound examination is performed between 11 weeks and 13 weeks gestational age. Blood tests are drawn after the ultrasound and again later in the between 15 and 21 weeks gestational age. Please let your physician know if you are interested in this testing. It will require an appointment with our industrial hygiene technician. This is not an ultrasound performed by a physician in our office during a routine visit. SIGNS AND SYMPTOMS OF LABOR 1. Contractions every 10 minutes or more often 2. Clear, pink, or brownish fluid (water) leaking from vagina 3. Feeling that baby is pushing down, pressure 4. Low, dull backache 5. Cramps that feel like a period 6. Cramps with or without diarrhea If you notice any of the above symptoms, contact our office at [phone] and ask to speak with a nurse. After hours, you can call doctors registry at [phone] OR call [facility] at [phone] and ask to have the doctor funeral pre need consultant paged. If you consider this an emergency, dial 9-1-1 or go to your nearest emergency department. Cord-Blood Banking Up until recently, the umbilical cord--along with the blood that remained in it after a baby was born and the cord cut--was simply discarded by the hospital. Then, in the late 1980s, researchers discovered that cord blood possessed unusual properties that made it useful in the treatment of patients with some cancers and other illnesses. While the actual process of collecting cord blood is straightforward, many parents are not even aware that this option now exists, much less familiar with all the issues involved. The case for saving your baby's cord blood The blood running back and forth between your baby and the placenta is full of immature cells called stem cells. Unlike embryonic stem cells, which have the ability to develop into any type of body cell, cord-blood stem cells already are locked into a certain, vital function: making all the different components of the blood, such as platelets, white blood cells, and red blood cells-serving, in effect, like bone marrow. When transfused into a patient whose own blood cells have faulty genetic coding or have been destroyed by chemotherapy or other cancer treatments, the cord-blood cells can implant themselves in the bone marrow and generate legions of new, healthy cells. These days, cord-blood transplants most commonly are used in cancer patients when a donor can't be found for a bone-marrow transplant. The treatment is particularly effective in young patients-the [facility] Cord Blood Bank reports a 70 percent success rate in children, but only 20 to 40 percent in adults. Researchers envision improving those odds and see many future applications as well, such as curing sickle cell disease and other blood-related genetic illnesses. So there is a possibility that your child, or someone else, may need these super-healthy and versatile cells one day. The drawbacks Aside from not knowing about this medical option, the main reason most people do not save their baby's stem cells is cost. In a private blood bank, the initial costs run from $275 to $1,500. Most also charge a yearly storage fee of $50 to $95. The advantage of using a private bank is that your sample is saved for only you to use. An alternative to private banking Public cord-blood [place] are an alternative. These cost no money to use, but your sample is not specifically saved for you. Another person with a more immediate need may use it. If the time should come that you need stem cells, yours may still be available, or you may use donations from other people without charge. You also can direct your sample to go to a relative with an immediate need if the blood type matches. Anyone else needing to use stem cells from a public bank who has not been a donor must pay for it, sometimes tens of thousands of dollars. Will my family benefit from saving stem cells? Right now, situations in which stem cells would be helpful are quite rare. As mentioned earlier, stem-cell transplants are most commonly used for rare genetic conditions and for some types of cancer, including leukemia and lymphoma. And even with these present uses, many questions remain. In cancer treatment, for example, some researchers are concerned about the wisdom of transplanting back into the child the same cells that already showed a propensity to become malignant. Doctors also aren't sure if the number of cells taken at the time of would be enough to treat a full-grown 16-year-old. It is also not completely clear how active the cells would be after years of being stored. The treatment is so new and rare, we just don't have the data yet to resolve these important issues. What do the experts say? The [place] [employer] encourages philanthropic blood banking in public [place], but only for families with a current or potential need. Blood-bank proponents encourage any kind of banking, pointing out that research is getting closer and closer to many diverse, live-saving applications. How do I decide? Each family must weigh the pros and cons for themselves. Some families say that any cost is worth their peace of mind. Others say that in the face of uncertainty about the effectiveness of the treatment, they will use their resources elsewhere. Some choose the middle ground of donating publicly, knowing that their sample might benefit another family, if not themselves. For more information, ask your doctor or nurse, and be sure to check out our article on the technical aspects of cord-blood banking. Technical Aspects of Cord-Blood Banking If you are interested in storing your baby's umbilical-cord blood because of its possible use in emerging medical treatments, you must make arrangements with a blood bank before your child is born. The collection procedure is quite simple: After delivery of the baby, the umbilical cord is clamped and cut in the usual way. The blood that remains in the umbilical-cord vessels is then collected in sterile containers. The blood may be removed from the cord with a large needle or allowed to flow freely, depending on the company's collection system. The containers may look like large test tubes or like the plastic bags used in a blood bank. It does not cause the mother or the baby any pain to collect the blood, and no blood is taken that the baby needs at the moment. The nurse, water pumper, or physician will then label the samples, check them over with you, and package them for a special pickup arranged with a commercial carrier. When the blood arrives at the blood-bank facility, it is processed and the parents are notified. It is then kept in an advanced storage system for years. How do I know that my sample is safe? Power outages and bankruptcies potentially could threaten any organization, but so far none have been reported. It is to be hoped that the scientists in these ro[place] would arrange for safe transfer to another facility if the need arose. YOU MUST MAKE ARRANGEMENTS AHEAD OF TIME! Public cord-blood ro[place]--DONATION: [employer] [phone] [facility]'s Placental Blood Program, [facility] Umbilical Cord Blood Bank, Private cord-blood ro[place]--SAVING FOR YOUR OWN USE: [employer], (I think this is the least expensive) [employer] [phone] [employer], ([phone]) [employer] [place] Cord Blood [facility], [phone] 700-CORD Cells, [phone] [place] [facility], Cord Blood Registry, ([phone]) [employer], An Internet search may provide you with additional listings. Pippa Bernstein RN 07/07/2018 10:16 AM Signed #: 1, Date: 09/24/15, Sex: Male, Weight: 7 lb 5 oz (3.317 kg), GA: 37w0d, Delivery: Vaginal, Spontaneous Delivery, Apgar1: None, Apgar5: None, Living: Living, Comments: pitocin induction, cholestasis, prolonged first stage labor, EBL 350cc #: 2, Date: None, Sex: None, Weight: None, GA: None, Delivery: None, Apgar1: None, Apgar5: None, Living: None, Comments: None Referring Provider: SELF [200] Allergies As of Date: 07/07/2018 Noted Allergy Reaction PENICILLINS 07/07/2018 6 - Diarrhea Date Reviewed: 07/07/2018 Reviewed by: Pippa Bernstein RN - Fully Assessed Reason for Visit: Care [86] Cmt: Pre-New OB Primary Visit Diagnosis:Chronic pre-existing hypertension during [O10.919] Other Visit Diagnoses:Chronic hypertension in [O10.919] Obesity in [O99.210] History of anxiety [Z86.59] Patient requested diagnostic testing [Z01.89] Order(s):IRAIDA PT ED REPACKER [] Order #: [id number]: 1 FUTURE IRAIDA PT ED REPACKER [] Order #: [id number]: 1 FUTURE IRAIDA PT ED REPACKER [] Order #: [id number]: 1 IRAIDA PT ED REPACKER [] Order #: [id number]: 1 Prescriptions as of 07/07/2018 Sig: VITAMIN,CALCIUM,MINE* Take 1 tablet by mouth. SERTRALINE 50 MG TABLET Take 1 tablet by mouth once d* LABETALOL 200 MG TABLET TKAE 1/2 TABLET BY MOUTH EVER* CHOLECALCIFEROL (VITAMIN D3) * Take 1 capsule by mouth once * LABETALOL 200 MG TABLET TKAE 1/2 TABLET BY MOUTH EVER* COPPER 380 SQUARE MM INTRAUTE* INSERTED IN THE OFFICE Patient not taking: Reported on 04/07/2018 Medication notes this encounter LABETALOL 200 MG TABLET >> Pippa Bernstein RN 07/07/2018 7:40 AM >> PIPPA BERNSTEIN RN [facility] Jul 07, 2018 7:40 AM duplicate order Problem List As Of Date 07/07/2018 Noted Resolved Adjustment disorder with mixed anxiety and depr*INVALID FOR*11/04/2015 Supervision of normal [Z34.90] INVALID FOR*08/21/2015 Chronic hypertension in [O10.919] INVALID FOR*06/06/2017 Vaginal bleeding in patient at less th*INVALID FOR*11/04/2015 More... HTN in , chronic [O10.919] INVALID FOR*11/04/2015 High-risk [O09.90] INVALID FOR*11/04/2015 Elevated LFTs [R94.5] INVALID FOR*11/04/2015 More... Cholestasis of in third trimester [O2*INVALID FOR*11/04/2015 More... Positive GBS test [B95.1] INVALID FOR*11/04/2015 Essential hypertension [I10] INVALID FOR* Anxiety [F41.9] INVALID FOR* Chronic pre-existing hypertension during pregna*INVALID FOR* More... Obesity in [O99.210] INVALID FOR* More... History of anxiety [Z86.59] INVALID FOR* More... Patient requested diagnostic testing [Z01.89] INVALID FOR* More... Other instructions from your clinician: SEQUENTIAL SCREENINGS The [facility] offers sequential screenings for women who are interested in screenings for chromosomal abnormalities and certain defects during a . The sequential screen combines ultrasound and blood tests to determine the risk of chromosomal abnormalities, including Down's Syndrome (Trisomy 21) and Trisomy 18, as well as open neural tube defects including spina bifida. Ultrasound examination is performed between 11 weeks and 13 weeks gestational age. Blood tests are drawn after the ultrasound and again later in the between 15 and 21 weeks gestational age. Please let your physician know if you are interested in this testing. It will require an appointment with our industrial hygiene technician. This is not an ultrasound performed by a physician in our office during a routine visit. SIGNS AND SYMPTOMS OF LABOR 1. Contractions every 10 minutes or more often 2. Clear, pink, or brownish fluid (water) leaking from vagina 3. Feeling that baby is pushing down, pressure 4. Low, dull backache 5. Cramps that feel like a period 6. Cramps with or without diarrhea If you notice any of the above symptoms, contact our office at [phone] and ask to speak with a nurse. After hours, you can call doctors registry at [phone] OR call [facility] at [phone] and ask to have the doctor funeral pre need consultant paged. If you consider this an emergency, dial [phone]--1 or go to your nearest emergency department. Cord-Blood Banking Up until recently, the umbilical cord--along with the blood that remained in it after a baby was born and the cord cut--was simply discarded by the hospital. Then, in the late , researchers discovered that cord blood possessed unusual properties that made it useful in the treatment of patients with some cancers and other illnesses. While the actual process of collecting cord blood is straightforward, many parents are not even aware that this option now exists, much less familiar with all the issues involved. The case for saving your baby's cord blood The blood running back and forth between your baby and the placenta is full of immature cells called stem cells. Unlike embryonic stem cells, which have the ability to develop into any type of body cell, cord-blood stem cells already are locked into a certain, vital function: making all the different components of the blood, such as platelets, white blood cells, and red blood cells-serving, in effect, like bone marrow. When transfused into a patient whose own blood cells have faulty genetic coding or have been destroyed by chemotherapy or other cancer treatments, the cord-blood cells can implant themselves in the bone marrow and generate legions of new, healthy cells. These days, cord-blood transplants most commonly are used in cancer patients when a donor can't be found for a bone-marrow transplant. The treatment is particularly effective in young patients- the [facility] Cord Blood Bank reports a 70 percent success rate in children, but only 20 to 40 percent in adults. Researchers envision improving those odds and see many future applications as well, such as curing sickle cell disease and other blood-related genetic illnesses. So there is a possibility that your child, or someone else, may need these super-healthy and versatile cells one day. The drawbacks Aside from not knowing about this medical option, the main reason most people do not save their baby's stem cells is cost. In a private blood bank, the initial costs run from $275 to $1,500. Most also charge a yearly storage fee of $50 to $95. The advantage of using a private bank is that your sample is saved for only you to use. An alternative to private banking Public cord-blood roth[place] are an alternative. These cost no money to use, but your sample is not specifically saved for you. Another person with a more immediate need may use it. If the time should come that you need stem cells, yours may still be available, or you may use donations from other people without charge. You also can direct your sample to go to a relative with an immediate need if the blood type matches. Anyone else needing to use stem cells from a public bank who has not been a donor must pay for it, sometimes tens of thousands of dollars. Will my family benefit from saving stem cells? Right now, situations in which stem cells would be helpful are quite rare. As mentioned earlier, stem-cell transplants are most commonly used for rare genetic conditions and for some types of cancer, including leukemia and lymphoma. And even with these present uses, many questions remain. In cancer treatment, for example, some researchers are concerned about the wisdom of transplanting back into the child the same cells that already showed a propensity to become malignant. Doctors also aren't sure if the number of cells taken at the time of would be enough to treat a full-grown 16-year-old. It is also not completely clear how active the cells would be after years of being stored. The treatment is so new and rare, we just don't have the data yet to resolve these important issues. What do the experts say? The [employer] encourages philanthropic blood banking in public [place], but only for families with a current or potential need. Blood-bank proponents encourage any kind of banking, pointing out that research is getting closer and closer to many diverse, live-saving applications. How do I decide? Each family must weigh the pros and cons for themselves. Some families say that any cost is worth their peace of mind. Others say that in the face of uncertainty about the effectiveness of the treatment, they will use their resources elsewhere. Some choose the middle ground of donating publicly, knowing that their sample might benefit another family, if not themselves. For more information, ask your doctor or nurse, and be sure to check out our article on the technical aspects of cord-blood banking. Technical Aspects of Cord-Blood Banking If you are interested in storing your baby's umbilical- cord blood because of its possible use in emerging medical treatments, you must make arrangements with a blood bank before your child is born. The collection procedure is quite simple: After delivery of the baby, the umbilical cord is clamped and cut in the usual way. The blood that remains in the umbilical-cord vessels is then collected in sterile containers. The blood may be removed from the cord with a large needle or allowed to flow freely, depending on the company's collection system. The containers may look like large test tubes or like the plastic bags used in a blood bank. It does not cause the mother or the baby any pain to collect the blood, and no blood is taken that the baby needs at the moment. The nurse, water pumper, or physician will then label the samples, check them over with you, and package them for a special pickup arranged with a commercial carrier. When the blood arrives at the blood- bank facility, it is processed and the parents are notified. It is then kept in an advanced storage system for years. How do I know that my sample is safe? Power outages and bankruptcies potentially could threaten any organization, but so far none have been reported. It is to be hoped that the scientists in these [place] would arrange for safe transfer to another facility if the need arose. YOU MUST MAKE ARRANGEMENTS AHEAD OF TIME! Public cord-blood rothman--DONATION: [employer] [phone] [facility]'s Placental Blood Program, [facility] Umbilical Cord Blood Bank, Private cord-blood rothman--SAVING FOR YOUR OWN USE: [employer], (I think this is the least expensive) [employer] [phone] [employer], ([phone]) [employer] [place] Cord Blood [facility], [phone] 700-CORD Cells, [phone] [place] [facility], Cord Blood Registry, ([phone]) [facility], An Internet search may provide you with additional listings. Disposition: Return in 6 days (on 07/13/2018) for New OB with Dr Fountain. Follow-up and Disposition History Recorded Encounter Status:Closed by PIPPA BERNSTEIN RN on 07/07/18 CNOV Observed: 04/07/2018 Status: COMPLETED Source: [place] 4:00 PM [facility] REPOSITORY Office Visit ([facility]) CHRISTIANASHELIA A ([id number]) 1985 F Date Time Provider Department 04/07/18 4:00 PM MIKE DELGADO During your visit today, we recorded the following information about you: Temperature Pulse Respiration Blood pressure 98.2 degrees 70/minute 15/minute 128/84 Weight 93.3 kg Mike Delgado MD 04/07/2018 4:29 PM Signed Shelia Boston Christiana is a 32 year old female presenting for follow up HTN: Has been doing the lebatolol BP has been running good She is doing the 1/2 pill in the am She noted less fatigue with doing the half pill in the morning Reports no chest pain, no lightheadedness, no dizziness Overall physically feels well Anxiety: Has been doing ok overall Is still there A little bit better It does bother her She will feel overwhelmed at times She had tried Zoloft in the past This did work but she gained weight She is worried about this Is still trying to get HISTORIES: PAST MEDICAL HISTORY Diagnosis Date - Cholestasis of in third trimester 08/15/2015 - Chronic hypertension in 04/01/2015 - H/O: depression took Wellbutrin in the past - History of anxiety - Hypertension PAST SURGICAL HISTORY Procedure Laterality Date - EXTRACTION ERUPTED TOOTH/EXR 2011 wisdom teeth x 3 FAMILY HISTORY Problem Relation Age of Onset - Cancer Mother ovarian CA - Alcohol/Drug Father - Psychiatry Father - Hypertension Father - atherosclerosis [OTHER] Father - Hypertension Sister - Diabetes Paternal Grandmother Social History: Social History Substance Use Topics - Smoking status: Never Smoker - Smokeless tobacco: Never Used - Alcohol use 1.5 oz/week 1 Mixed Drinks per week Comment: Rare-NONE WHILE Allergies: ALLERGIES No Known Allergies Medications: labetalol (TRANDATE) 200 mg tablet 1/2 pill in the morning and full pill in the evening Cholecalciferol, Vitamin D3, (VITAMIN D-3) 2,000 unit cap Take 1 capsule by mouth once daily. sertraline (ZOLOFT) 50 mg tablet Take 1 tablet by mouth once daily. copper (PARAGARD T 380A) 380 square mm IUD INSERTED IN THE OFFICE REVIEW OF SYSTEMS See HPI PHYSICAL EXAMINATION: BP 128/84 Pulse 70 Temp 36.8 ?C (98.2 ?F) (Oral) Resp 15 Wt 93.3 kg (205 lb 9.6 oz) LMP 04/03/2018 SpO2 99% BMI 35.29 kg/m? General Appearance: Well appearing, alert, in no acute distress, well-hydrated, well nourished., Overweight. Psych: Appropriate mood and affect, maintains good eye contact, answers questions appropriately. ASSESSMENT/PLAN: 1. Essential hypertension - ICD9: 401.9, ICD10: I10 (primary diagnosis) Blood pressure is doing very well Patient has less fatigue and tiredness with doing a half a pill in the morning of the labetalol Continue same dose for now Recheck at follow-up Continue working on diet, exercise, weight control Monitor blood pressure at home 2. Anxiety - ICD9: 300.00, ICD10: F41.9 Patient still continues with this generalized anxiety Will feel stressed, overwhelmed at times Will occur out of the blue Does not seem to be getting any better Was trying to stay away from medication but given continuation of symptoms feels she needs to try something Had been on Zoloft in the past but had some substantial weight gain with this even though it didn't work very well As she is trying to get , somewhat limited in medications we can try We will try Zoloft again but have her be more conscious about watching food intake, calorie intake, exercise Start with half a pill for the first week then up to a full pill Follow-up in one month - SERTRALINE 50 MG TABLET MD Ninoska Hays MA 04/07/2018 3:57 PM Signed Patient presents with: Follow Up: 3 month Mike Delgado MD 04/07/2018 4:25 PM Signed Try the zoloft do 1/2 pill for 1 week then up to full pill Follow up in 1 month Call for concerns Keep an eye on the weight as well Referring Provider: SELF [200] Allergies As of Date: 04/07/2018 (No Known Allergies) Date Reviewed: 04/07/2018 Reviewed by: Ninoska Cordon MA - Fully Assessed Reason for Visit: Follow Up [171] Cmt: 3 month Primary Visit Diagnosis:Essential hypertension [I10] Other Visit Diagnosis:Anxiety [F41.9] Order(s):sertraline (ZOLOFT) 50 mg tabletTake 1 tablet by mouth once daily.Disp: 30 tabletRfl: 1 Prescriptions as of 04/07/2018 Sig: LABETALOL 200 MG TABLET 1/2 pill in the morning and f* CHOLECALCIFEROL (VITAMIN D3) * Take 1 capsule by mouth once * SERTRALINE 50 MG TABLET Take 1 tablet by mouth once d* COPPER 380 SQUARE MM INTRAUTE* INSERTED IN THE OFFICE Patient not taking: Reported on 04/07/2018 Medication notes this encounter COPPER 380 SQUARE MM INTRAUTERINE DEVICE >> Ninoska Cordon MA 04/07/2018 4:00 PM >> NINOSKA CORDON MA Hayley Apr 07, 2018 4:00 PM Removed 04/06/18 Problem List As Of Date 04/07/2018 Noted Resolved Adjustment disorder with mixed anxiety and depr*INVALID FOR*11/04/2015 Supervision of normal [Z34.90] INVALID FOR*08/21/2015 Chronic hypertension in [O10.919] INVALID FOR*06/06/2017 Vaginal bleeding in patient at less th*INVALID FOR*11/04/2015 More... HTN in , chronic [O10.919] INVALID FOR*11/04/2015 High-risk [O09.90] INVALID FOR*11/04/2015 Elevated LFTs [R94.5] INVALID FOR*11/04/2015 More... Cholestasis of in third trimester [O2*INVALID FOR*11/04/2015 More... Positive GBS test [B95.1] INVALID FOR*11/04/2015 Essential hypertension [I10] INVALID FOR* Anxiety [F41.9] INVALID FOR* Other instructions from your clinician: Try the zoloft do 1/2 pill for 1 week then up to full pill Follow up in 1 month Call for concerns Keep an eye on the weight as well Visit Notes: >> Ninoska Hardy Apr 07, 2018 3:57 PM Status: Signed Patient presents with: Follow Up: 3 month Prescriptions ordered this encounter Disp Refills Start End SERTRALINE 50 MG TABLET 30 t* 1 04/07/2018 Route: ORAL Sig: Take 1 tablet by mouth once daily. Disposition: Return in about 4 weeks (around 05/05/2018). Follow-up and Disposition History Recorded Encounter Status:Closed by MIKE DELGADO MD on 04/07/18 PROGRESS Observed: 04/07/2018 Status: COMPLETED Source: [place] 3:52 PM [facility] REPOSITORY O ID: [id number] Author: Mike Delgado Service: (none) Author Type: Physician Type: Progress Notes Filed: 04/07/2018 4:29 PM Note Text: Shelia Villeda is a 32 year old female presenting for follow up HTN: Has been doing the lebatolol BP has been running good She is doing the 1/2 pill in the am She noted less fatigue with doing the half pill in the morning Reports no chest pain, no lightheadedness, no dizziness Overall physically feels well Anxiety: Has been doing ok overall Is still there A little bit better It does bother her She will feel overwhelmed at times She had tried Zoloft in the past This did work but she gained weight She is worried about this Is still trying to get HISTORIES: PAST MEDICAL HISTORY Diagnosis Date - Cholestasis of in third trimester 08/15/2015 - Chronic hypertension in 04/01/2015 - H/O: depression took Wellbutrin in the past - History of anxiety - Hypertension PAST SURGICAL HISTORY Procedure Laterality Date - EXTRACTION ERUPTED TOOTH/EXR 2011 wisdom teeth x 3 FAMILY HISTORY Problem Relation Age of Onset - Cancer Mother ovarian CA - Alcohol/Drug Father - Psychiatry Father - Hypertension Father - atherosclerosis [OTHER] Father - Hypertension Sister - Diabetes Paternal Grandmother Social History: Social History Substance Use Topics - Smoking status: Never Smoker - Smokeless tobacco: Never Used - Alcohol use 1.5 oz/week 1 Mixed Drinks per week Comment: Rare-NONE WHILE Allergies: ALLERGIES No Known Allergies Medications: labetalol (TRANDATE) 200 mg tablet 1/2 pill in the morning and full pill in the evening Cholecalciferol, Vitamin D3, (VITAMIN D-3) 2,000 unit cap Take 1 capsule by mouth once daily. sertraline (ZOLOFT) 50 mg tablet Take 1 tablet by mouth once daily. copper (PARAGARD T 380A) 380 square mm IUD INSERTED IN THE OFFICE REVIEW OF SYSTEMS See HPI PHYSICAL EXAMINATION: BP 128/84 Pulse 70 Temp 36.8 ?C (98.2 ?F) (Oral) Resp 15 Wt 93.3 kg (205 lb 9.6 oz) LMP 04/03/2018 SpO2 99% BMI 35.29 kg/m? General Appearance: Well appearing, alert, in no acute distress, well-hydrated, well nourished., Overweight. Psych: Appropriate mood and affect, maintains good eye contact, answers questions appropriately. ASSESSMENT/PLAN: 1. Essential hypertension - ICD9: 401.9, ICD10: I10 (primary diagnosis) Blood pressure is doing very well Patient has less fatigue and tiredness with doing a half a pill in the morning of the labetalol Continue same dose for now Recheck at follow-up Continue working on diet, exercise, weight control Monitor blood pressure at home 2. Anxiety - ICD9: 300.00, ICD10: F41.9 Patient still continues with this generalized anxiety Will feel stressed, overwhelmed at times Will occur out of the blue Does not seem to be getting any better Was trying to stay away from medication but given continuation of symptoms feels she needs to try something Had been on Zoloft in the past but had some substantial weight gain with this even though it didn't work very well As she is trying to get , somewhat limited in medications we can try We will try Zoloft again but have her be more conscious about watching food intake, calorie intake, exercise Start with half a pill for the first week then up to a full pill Follow-up in one month - SERTRALINE 50 MG TABLET Mike Delgado MD PROGRESS Observed: 04/06/2018 Status: COMPLETED Source: [place] 11:30 AM [facility] REPOSITORY O ID: [id number] Author: Mary Fountain Service: (none) Author Type: Physician Type: Progress Notes Filed: 04/06/2018 11:45 AM Note Text: Shelia Villeda presents for removal of IUD due to desire for . UNIVERSAL PROTOCOL / SAFETY CHECKLIST Procedure to be performed: IUD removal Sign in Communication: Completed Time Out: Team Confirms the Correct Patient, Correct Procedure, Correct Site and Site Marking, Correct Position (if applicable), Prep and Dry Time (if applicable). Time: Affirmation of Time Out: YES Sign Out Discussion: Completed Lakeisha Rollins Ma PROCEDURE: Speculum placed in vagina, IUD string visualized and grasped with ring forceps. ASSESSMENT/PLAN: IUD removed without difficult and patient tolerated procedure well. Contraception plans: none Reviewed pre-conception guidelines including folic acid supplementation, optimal timing of intercourse, avoidance of smoking, alcohol, exposure to environmental chemicals and need for evaluation if not within 12 months. Mary Barnes MD CNOV Observed: 04/06/2018 Status: COMPLETED Source: [place] 11:30 AM [facility] REPOSITORY Office Visit ([facility]) HAVENSHELIA Dee ([id number]) 1985 F Date Time Provider Department 04/06/18 11:30 AM MARY MULLINS [place] During your visit today, we recorded the following information about you: Blood pressure Weight Last Period 124/78 92.5 kg 04/03/18 Mary Barnes MD 04/06/2018 11:45 AM Signed Shelia Villeda presents for removal of IUD due to desire for . UNIVERSAL PROTOCOL / SAFETY CHECKLIST Procedure to be performed: IUD removal Sign in Communication: Completed Time Out: Team Confirms the Correct Patient, Correct Procedure, Correct Site and Site Marking, Correct Position (if applicable), Prep and Dry Time (if applicable). Time: Affirmation of Time Out: YES Sign Out Discussion: Completed Lakeisha Rollins Ma PROCEDURE: Speculum placed in vagina, IUD string visualized and grasped with ring forceps. ASSESSMENT/PLAN: IUD removed without difficult and patient tolerated procedure well. Contraception plans: none Reviewed pre-conception guidelines including folic acid supplementation, optimal timing of intercourse, avoidance of smoking, alcohol, exposure to environmental chemicals and need for evaluation if not within 12 months. Mary Barnes MD Referring Provider: SELF [200] Allergies As of Date: 04/06/2018 (No Known Allergies) Date Reviewed: 04/06/2018 Reviewed by: Lakeisha Rollins Ma - Fully Assessed Reason for Visit: IUD Removal [1950] Primary Visit Diagnosis:Encounter for IUD removal [Z30.432] Order(s):REMOVE INTRAUTERINE DEVICE [[id number]] Order #: [id number] Prescriptions as of 04/06/2018 Sig: LABETALOL 200 MG TABLET 1/2 pill in the morning and f* CHOLECALCIFEROL (VITAMIN D3) * Take 1 capsule by mouth once * COPPER 380 SQUARE MM INTRAUTE* INSERTED IN THE OFFICE Problem List As Of Date 04/06/2018 Noted Resolved Adjustment disorder with mixed anxiety and depr*INVALID FOR*11/04/2015 Supervision of normal [Z34.90] INVALID FOR*08/21/2015 Chronic hypertension in [O10.919] INVALID FOR*06/06/2017 Vaginal bleeding in patient at less th*INVALID FOR*11/04/2015 More... HTN in , chronic [O10.919] INVALID FOR*11/04/2015 High-risk [O09.90] INVALID FOR*11/04/2015 Elevated LFTs [R94.5] INVALID FOR*11/04/2015 More... Cholestasis of in third trimester [O2*INVALID FOR*11/04/2015 More... Positive GBS test [B95.1] INVALID FOR*11/04/2015 Essential hypertension [I10] INVALID FOR* Disposition: Return if symptoms worsen or fail to improve, for Routine annual exam. Follow-up and Disposition History Recorded Encounter Status:Closed by MARY FOUNTAIN MD on 04/06/18 CNNURSE Observed: 01/27/2018 Status: COMPLETED Source: [place] 3:00 PM [facility] REPOSITORY Nurse Visit (FAMDNA) CHRISTIANASHELIA A ([id number]) 1985 F Date Time Provider Department 01/27/18 3:00 PM NURSE [facility] FRITZDNA During your visit today, we recorded the following information about you: Pulse Blood pressure 90/minute 124/84 Referring Provider: SELF [200] Allergies As of Date: 01/27/2018 (No Known Allergies) Date Reviewed: 01/06/2018 Reviewed by: Cassie Lee Ma - Fully Assessed Reason for Visit: BP Check [142] Cmt: Patient states taking her med today as prescribed. Primary Visit Diagnosis:Hypertension, essential [I10] Prescriptions as of 01/27/2018 Sig: LABETALOL 200 MG TABLET 1/2 pill in the morning and f* CHOLECALCIFEROL (VITAMIN D3) * Take 1 capsule by mouth once * COPPER 380 SQUARE MM INTRAUTE* INSERTED IN THE OFFICE Problem List As Of Date 01/27/2018 Noted Resolved Adjustment disorder with mixed anxiety and depr*INVALID FOR*11/04/2015 Supervision of normal [Z34.90] INVALID FOR*08/21/2015 Chronic hypertension in [O10.919] INVALID FOR*06/06/2017 Vaginal bleeding in patient at less th*INVALID FOR*11/04/2015 More... HTN in , chronic [O10.919] INVALID FOR*11/04/2015 High-risk [O09.90] INVALID FOR*11/04/2015 Elevated LFTs [R79.89] INVALID FOR*11/04/2015 More... Cholestasis of in third trimester [O2*INVALID FOR*11/04/2015 More... Positive GBS test [B95.1] INVALID FOR*11/04/2015 Essential hypertension [I10] INVALID FOR* Encounter Status:Closed by SEBLE LEWIS MA on 01/27/18 PROGRESS Observed: 01/06/2018 Status: COMPLETED Source: [place] 2:55 PM [facility] REPOSITORY HNO ID: [id number] Author: Mike Delgado Service: (none) Author Type: Physician Type: Progress Notes Filed: 01/06/2018 3:30 PM Note Text: Shelia Villeda is a 32 year old female presenting for [facility] Care (Pt states here to [facility] care) She is here for physical She has past history of HTN Has been taking labetolol with good success She has been on medications since she was 3 years ago She had continued the medication for a few months after she deliveried and she then stopped Is not sure how her blood pressure was doing Went to see last PCP and was started on HCTZ but was not sure if this helped She had been planning to get again so was switched to lebatolol She had been feeling tired and fatigued through the day She had then stopped the morning dose She had felt better but not sure about her blood pressure though Anxiety: She has had this for years Seemed to start up again in the fall Had gotten new job, new house, has toddler Will get feel on edge She will get chest pressure or tightness Has nothing that sets it off Will feel overwhelmed at times Does not feel depressed though Has no lack of motivation (has had this before) HISTORIES: PAST MEDICAL HISTORY Diagnosis Date - Cholestasis of in third trimester 08/15/2015 - Chronic hypertension in 04/01/2015 - H/O: depression took Wellbutrin in the past - History of anxiety - Hypertension PAST SURGICAL HISTORY Procedure Laterality Date - EXTRACTION ERUPTED TOOTH/EXR 2011 wisdom teeth x 3 FAMILY HISTORY Problem Relation Age of Onset - Cancer Mother ovarian CA - Alcohol/Drug Father - Psychiatry Father - atherosclerosis [OTHER] Father - Diabetes Paternal Grandmother Social History: Social History Substance Use Topics - Smoking status: Never Smoker - Smokeless tobacco: Never Used - Alcohol use 1.5 oz/week 1 Mixed Drinks per week Comment: Rare-NONE WHILE Social History Marital status: Spouse name: Jessa Years of education: 16 Number of children: 1 Occupational History 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 copper (PARAGARD T 380A) 380 square mm IUD INSERTED IN THE OFFICE REVIEW OF SYSTEMS GENERAL: No weight loss, malaise or fevers HEENT: Negative for frequent or significant headaches, No changes in hearing or vision, no nose bleeds or other nasal problems NECK: Negative for lumps, goiter, pain and significant neck swelling RESPIRATORY: Negative for cough, hemoptysis, wheezing, COPD, dyspnea or shortness of breath CARDIOVASCULAR: Negative for chest pain, leg swelling, hypertension, CHF or palpitations GI: No nausea, vomiting, or diarrhea : No history of dysuria, frequency or incontinence GEOMORPHOLOGY TEACHER: Negative for abnormal vaginal bleeding, abnormal vaginal discharge MUSCULOSKELETAL: Negative for joint pain or swelling, back pain or muscle pain SKIN: Negative for lesions, rash, and itching PSYCH: See HPI HEMATOLOGY/LYMPHOLOGY: Negative for prolonged bleeding, bruising easily or swollen nodes ENDOCRINE: Negative for cold or heat intolerance, polyuria, polydipsia and goiter NEURO: No history of headaches, syncope, paralysis, seizures or tremors PHYSICAL EXAMINATION: BP 130/84 Pulse 77 Temp 36.8 ?C (98.3 ?F) (Oral) Resp 18 Ht 162.6 cm (5' 4) Wt 92.1 kg (203 lb) SpO2 100% BMI 34.84 kg/m2 General Appearance: Well appearing, alert, in no acute distress, well-hydrated, well nourished., Obese. Head: Normocephalic, no masses, lesions, tenderness or abnormalities. Eyes: Anicteric sclera. Pupils are equally round and reactive to light. Extraocular movements are intact. . Oropharynx: Lips, mucosa, and tongue normal, teeth and gums normal, oropharynx normal. Neck: Supple, no adenopathy; thyroid symmetric, normal size, no bruits. Lungs: Lungs clear to auscultation. No wheezing, rhonchi, rales. Heart: RRR without murmur, gallop, or rubs. No ectopy. Abdomen: Normal abdominal exam, Abdomen soft, non-tender. Bowel sounds normal. No masses, organomegaly. Extremities: No deformities, edema, skin discoloration, clubbing or cyanosis. Good capillary refill. . Musculoskeletal: No joint swelling, deformity, or tenderness. Peripheral Pulses: Normal. Psych: Appropriate mood and affect, maintains good eye contact, answers questions appropriately. ASSESSMENT/PLAN: 1. Routine physical examination - ICD9: V70.0, ICD10: Z00.00 (primary diagnosis) Patient does follow regularly with GEOMORPHOLOGY TEACHER Counseled on importance of working on diet, exercise, weight control She is up-to-date on immunizations Reviewed past blood work including lipids 2. Essential hypertension - ICD9: 401.9, ICD10: I10 Has been diagnosed with hypertension since her 3 years ago Did well with labetalol during the Was tried on hydrochlorothiazide but did not work as well and now with potentially getting again, has gone back to the labetalol Has been doing 200 mg twice a day but had some significant feeling of grogginess and tiredness Has stopped the morning dose and has noted an improvement in those symptoms Blood pressure still borderline Given that, we'll have her start doing half pill in the morning and a full pill in the evening Recheck nurse visit blood pressure check in 3?4 weeks Keep monitoring blood pressure at home Work on diet, exercise, weight loss Follow-up here in 3 months - LABETALOL 200 MG TABLET 3. Anxiety - ICD9: 300.00, ICD10: F41.9 Patient is reported some generalized anxiety Does have a lot of stressors including new house, new job, 2-year-old, potentially getting etc. Does have past history of some anxiety and depression Patient will feel on edge, overwhelmed at times Given her trying to get , we'll hold off on medication Recommend some counseling and phone numbers were given Recommend doing some deep breathing, meditation , exercise I think with the change in weather that will help with her mood is well Recheck at follow-up in about 3 months to see how she's doing If need be, we could do a SSRI but for now, hopefully will working on some relaxation techniques should help Also recommend doing a happy light as her office is not anywhere close to windows iMke Delgado MD blood work reviewed: Component Latest Ref Rng AND Units 02/05/2016 08/24/2017 WBC 3.70 - 11.00 k/uL 5.80 RBC 3.90 - 5.20 m/uL 4.80 Hemoglobin 11.5 - 15.5 g/dL 12.9 Hematocrit 36.0 - 46.0 % 40.4 MCV 80.0 - 100.0 fL 84.2 MCH 26.0 - 34.0 pG 26.9 MCHC 30.5 - 36.0 g/dL 31.9 RDW-CV 11.5 - 15.0 % 14.1 Platelet Count 150 - 400 k/uL 202 MPV 9.0 - 12.7 fL 11.2 Neut% % 70.2 Abs Neut (ANC) 1.45 - 7.50 k/uL 4.07 Lymph% % 17.4 Abs Lymph 1.00 - 4.00 k/uL 1.01 Wythe% % 10.5 Abs Wythe 0.00 - 0.86 k/uL 0.61 Eosin% % 1.6 Abs Eosin 0.00 - 0.45 k/uL 0.09 Baso% % 0.3 Abs Baso 0.00 - 0.10 k/uL 0.02 Diff Type Auto Diff Glucose 74 - 99 mg/dL 89 57 (L) BUN 7 - 21 mg/dL 7 (L) 11 Creatinine 0.58 - 0.96 mg/dL 0.82 0.78 Sodium 136 - 144 mmol/L 141 140 Potassium 3.7 - 5.1 mmol/L 4.0 4.1 Chloride 97 - 105 mmol/L 99 97 CO2 22 - 30 mmol/L 21 (L) 25 Anion Gap 9 - 18 mmol/L 21 (H) 18 Calcium 8.5 - 10.2 mg/dL 9.6 9.6 eGFR- >60 >60 eGFR-All Other Races . >60 >60 Triglyceride 30 - 149 mg/dL 197 (H) Cholesterol, Total 100 - 199 mg/dL 183 HDL Cholesterol >55 mg/dL 43 (L) VLDL Cholesterol 6 - 40 mg/dL 39 LDL Cholesterol 60 - 129 mg/dL 101 Fasting Time hrs non fasting TC:HDL Ratio 1.00 - 5.00 4.26 LDL:HDL Ratio 0.50 - 3.55 2.35 Non HDL Cholesterol 90 - 159 mg/dL 140 PROGRESS Observed: 01/06/2018 Status: COMPLETED Source: [place] 2:46 PM [facility] REPOSITORY HNO ID: [id number] Author: Cassie Lee Ma Service: (none) Author Type: (none) Type: Progress Notes Filed: 01/06/2018 3:30 PM Note Text: There are no preventive care reminders to display for this patient. CNOV Observed: 01/06/2018 Status: COMPLETED Source: [place] 2:40 PM [facility] REPOSITORY Office Visit (FAMDNA) CHRISTIANASHELIA ([id number]) 1985 F Date Time Provider Department 01/06/18 2:40 PM MIKE DELGADO During your visit today, we recorded the following information about you: Temperature Pulse Respiration Blood pressure 98.3 degrees 77/minute 18/minute 130/84 Weight Height 92.1 kg 1.626 m Cassie Lee Ma 01/06/2018 2:48 PM Signed Patient presents with: Establish Care: Pt states here to est care Cassie Lee Ma 01/06/2018 3:30 PM Signed There are no preventive care reminders to display for this patient. Mike Delgado MD 01/06/2018 3:30 PM Signed Sheliapedro luis Villeda is a 32 year old female presenting for Establish Care (Pt states here to est care) She is here for physical She has past history of HTN Has been taking labetolol with good success She has been on medications since she was 3 years ago She had continued the medication for a few months after she deliveried and she then stopped Is not sure how her blood pressure was doing Went to see last PCP and was started on HCTZ but was not sure if this helped She had been planning to get again so was switched to lebatolol She had been feeling tired and fatigued through the day She had then stopped the morning dose She had felt better but not sure about her blood pressure though Anxiety: She has had this for years Seemed to start up again in the fall Had gotten new job, new house, has toddler Will get feel on edge She will get chest pressure or tightness Has nothing that sets it off Will feel overwhelmed at times Does not feel depressed though Has no lack of motivation (has had this before) HISTORIES: PAST MEDICAL HISTORY Diagnosis Date - Cholestasis of in third trimester 08/15/2015 - Chronic hypertension in 04/01/2015 - H/O: depression took Wellbutrin in the past - History of anxiety - Hypertension PAST SURGICAL HISTORY Procedure Laterality Date - EXTRACTION ERUPTED TOOTH/EXR 2011 wisdom teeth x 3 FAMILY HISTORY Problem Relation Age of Onset - Cancer Mother ovarian CA - Alcohol/Drug Father - Psychiatry Father - atherosclerosis [OTHER] Father - Diabetes Paternal Grandmother Social History: Social History Substance Use Topics - Smoking status: Never Smoker - Smokeless tobacco: Never Used - Alcohol use 1.5 oz/week 1 Mixed Drinks per week Comment: Rare-NONE WHILE Social History Marital status: Spouse name: Jessa Years of education: 16 Number of children: 1 Occupational History 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 copper (PARAGARD T 380A) 380 square mm IUD INSERTED IN THE OFFICE REVIEW OF SYSTEMS GENERAL: No weight loss, malaise or fevers HEENT: Negative for frequent or significant headaches, No changes in hearing or vision, no nose bleeds or other nasal problems NECK: Negative for lumps, goiter, pain and significant neck swelling RESPIRATORY: Negative for cough, hemoptysis, wheezing, COPD, dyspnea or shortness of breath CARDIOVASCULAR: Negative for chest pain, leg swelling, hypertension, CHF or palpitations GI: No nausea, vomiting, or diarrhea : No history of dysuria, frequency or incontinence GEOMORPHOLOGY TEACHER: Negative for abnormal vaginal bleeding, abnormal vaginal discharge MUSCULOSKELETAL: Negative for joint pain or swelling, back pain or muscle pain SKIN: Negative for lesions, rash, and itching PSYCH: See HPI HEMATOLOGY/LYMPHOLOGY: Negative for prolonged bleeding, bruising easily or swollen nodes ENDOCRINE: Negative for cold or heat intolerance, polyuria, polydipsia and goiter NEURO: No history of headaches, syncope, paralysis, seizures or tremors PHYSICAL EXAMINATION: BP 130/84 Pulse 77 Temp 36.8 ?C (98.3 ?F) (Oral) Resp 18 Ht 162.6 cm (5' 4ANDquot;) Wt 92.1 kg (203 lb) SpO2 100% BMI 34.84 kg/m2 General Appearance: Well appearing, alert, in no acute distress, well-hydrated, well nourished., Obese. Head: Normocephalic, no masses, lesions, tenderness or abnormalities. Eyes: Anicteric sclera. Pupils are equally round and reactive to light. Extraocular movements are intact. . Oropharynx: Lips, mucosa, and tongue normal, teeth and gums normal, oropharynx normal. Neck: Supple, no adenopathy; thyroid symmetric, normal size, no bruits. Lungs: Lungs clear to auscultation. No wheezing, rhonchi, rales. Heart: RRR without murmur, gallop, or rubs. No ectopy. Abdomen: Normal abdominal exam, Abdomen soft, non-tender. Bowel sounds normal. No masses, organomegaly. Extremities: No deformities, edema, skin discoloration, clubbing or cyanosis. Good capillary refill. . Musculoskeletal: No joint swelling, deformity, or tenderness. Peripheral Pulses: Normal. Psych: Appropriate mood and affect, maintains good eye contact, answers questions appropriately. ASSESSMENT/PLAN: 1. Routine physical examination - ICD9: V70.0, ICD10: Z00.00 (primary diagnosis) Patient does follow regularly with GEOMORPHOLOGY TEACHER Counseled on importance of working on diet, exercise, weight control She is up-to-date on immunizations Reviewed past blood work including lipids 2. Essential hypertension - ICD9: 401.9, ICD10: I10 Has been diagnosed with hypertension since her 2 years ago Did well with labetalol during the Was tried on hydrochlorothiazide but did not work as well and now with potentially getting again, has gone back to the labetalol Has been doing 200 mg twice a day but had some significant feeling of grogginess and tiredness Has stopped the morning dose and has noted an improvement in those symptoms Blood pressure still borderline Given that, we'll have her start doing half pill in the morning and a full pill in the evening Recheck nurse visit blood pressure check in 3?4 weeks Keep monitoring blood pressure at home Work on diet, exercise, weight loss Follow-up here in 3 months - LABETALOL 200 MG TABLET 3. Anxiety - ICD9: 300.00, ICD10: F41.9 Patient is reported some generalized anxiety Does have a lot of stressors including new house, new job, 2-year-old, potentially getting etc. Does have past history of some anxiety and depression Patient will feel on edge, overwhelmed at times Given her trying to get , we'll hold off on medication Recommend some counseling and phone numbers were given Recommend doing some deep breathing, meditation , exercise I think with the change in weather that will help with her mood is well Recheck at follow-up in about 3 months to see how she's doing If need be, we could do a SSRI but for now, hopefully will working on some relaxation techniques should help Also recommend doing a happy light as her office is not anywhere close to windows Mike Delgado MD blood work reviewed: Component Latest Ref Rng ANDamp; Units 02/05/2016 08/24/2017 WBC 3.70 - 11.00 k/uL 5.80 RBC 3.90 - 5.20 m/uL 4.80 Hemoglobin 11.5 - 15.5 g/dL 12.9 Hematocrit 36.0 - 46.0 % 40.4 MCV 80.0 - 100.0 fL 84.2 MCH 26.0 - 34.0 pG 26.9 MCHC 30.5 - 36.0 g/dL 31.9 RDW-CV 11.5 - 15.0 % 14.1 Platelet Count 150 - 400 k/uL 202 MPV 9.0 - 12.7 fL 11.2 Neut% % 70.2 Abs Neut (ANC) 1.45 - 7.50 k/uL 4.07 Lymph% % 17.4 Abs Lymph 1.00 - 4.00 k/uL 1.01 Wythe% % 10.5 Abs Wythe 0.00 - 0.86 k/uL 0.61 Eosin% % 1.6 Abs Eosin 0.00 - 0.45 k/uL 0.09 Baso% % 0.3 Abs Baso 0.00 - 0.10 k/uL 0.02 Diff Type Auto Diff Glucose 74 - 99 mg/dL 89 57 (L) BUN 7 - 21 mg/dL 7 (L) 11 Creatinine 0.58 - 0.96 mg/dL 0.82 0.78 Sodium 136 - 144 mmol/L 141 140 Potassium 3.7 - 5.1 mmol/L 4.0 4.1 Chloride 97 - 105 mmol/L 99 97 CO2 22 - 30 mmol/L 21 (L) 25 Anion Gap 9 - 18 mmol/L 21 (H) 18 Calcium 8.5 - 10.2 mg/dL 9.6 9.6 eGFR- ANDgt;60 ANDgt;60 eGFR-All Other Races . ANDgt;60 ANDgt;60 Triglyceride 30 - 149 mg/dL 197 (H) Cholesterol, Total 100 - 199 mg/dL 183 HDL Cholesterol ANDgt;55 mg/dL 43 (L) VLDL Cholesterol 6 - 40 mg/dL 39 LDL Cholesterol 60 - 129 mg/dL 101 Fasting Time hrs non fasting TC:HDL Ratio 1.00 - 5.00 4.26 LDL:HDL Ratio 0.50 - 3.55 2.35 Non HDL Cholesterol 90 - 159 mg/dL 140 Mike Delgado MD 01/06/2018 3:20 PM Signed Do the new dose of the labetolol Nurse visit for blood pressure check in 3-4 weeks Follow up here in 3 months Look into Happy Light Look into counseling [facility] [phone] [facility] [phone] [facility] [phone] Referring Provider: SELF [200] Allergies As of Date: 01/06/2018 (No Known Allergies) Date Reviewed: 01/06/2018 Reviewed by: Cassie Lee Ma - Fully Assessed Reason for Visit: Establish Care [42] Cmt: Pt states here to est care Primary Visit Diagnosis:Routine physical examination [Z00.00] Other Visit Diagnoses:Essential hypertension [I10] Anxiety [F41.9] Order(s):labetalol (TRANDATE) 200 mg tablet1/2 pill in the morning and full pill in the eveningDisp: Rfl: Cholecalciferol, Vitamin D3, (VITAMIN D-3) 2,000 unit capTake 1 capsule by mouth once daily.Disp: Rfl: Prescriptions as of 01/06/2018 Sig: LABETALOL 200 MG TABLET 1/2 pill in the morning and f* COPPER 380 SQUARE MM INTRAUTE* INSERTED IN THE OFFICE CHOLECALCIFEROL (VITAMIN D3) * Take 1 capsule by mouth once * Problem List As Of Date 01/06/2018 Noted Resolved Adjustment disorder with mixed anxiety and depr*INVALID FOR*11/04/2015 Supervision of normal [Z34.90] INVALID FOR*08/21/2015 Chronic hypertension in [O10.919] INVALID FOR*06/06/2017 Vaginal bleeding in patient at less th*INVALID FOR*11/04/2015 More... HTN in , chronic [O10.919] INVALID FOR*11/04/2015 High-risk [O09.90] INVALID FOR*11/04/2015 Elevated LFTs [R79.89] INVALID FOR*11/04/2015 More... Cholestasis of in third trimester [O2*INVALID FOR*11/04/2015 More... Positive GBS test [B95.1] INVALID FOR*11/04/2015 Essential hypertension [I10] INVALID FOR* Other instructions from your clinician: Do the new dose of the labetolol Nurse visit for blood pressure check in 3-4 weeks Follow up here in 3 months Look into Happy Light Look into counseling [facility] [phone] [facility] [phone] [facility] [phone] Visit Notes: >> Cassie Jesus Yuen [facility] Jan 06, 2018 2:46 PM Status: Signed Patient presents with: Establish Care: Pt states here to [facility] care Prescriptions ordered this encounter Disp Refills Start End LABETALOL 200 MG TABLET 01/06/2018 Class: Med Update Si/2 pill in the morning and full pill in the evening CHOLECALCIFEROL (VITAMIN D3) 2,000 U* 01/06/2018 Class: OTC Route: ORAL Sig: Take 1 capsule by mouth once daily. Medications Discontinued During This Encounter labetalol (TRANDATE) 200 mg tablet 60 t* 2 11/08/2017 01/06/2018 Route: ORAL Sig: Take 1 tablet by mouth twice daily. Disc: Reason for discontinue is not on file. Disposition: Return in about 3 months (around 04/07/2018). Follow-up and Disposition History Recorded Encounter Status:Closed by MIKE DELGADO MD on 01/06/18 PROGRESS Observed: 11/08/2017 Status: COMPLETED Source: [place] 4:08 PM [facility] HNO ID: [id number] Author: Keisha Mcintyre Service: (none) Author Type: Physician Type: Progress Notes Filed: 11/08/2017 5:27 PM Note Text: Chief Complaint Patient presents with: Hypertension HPI Shelia Villeda is a 32 year old female who presents here today for follow-up of bp elevatio . Bp med changed from HCTZ to labetalol due to potential for within few mos. She has a bp cuff but variable readings within a few minutes. High and then Low Past medical history, appointments, medications, allergies reviewed. Previous Medical History PAST MEDICAL HISTORY Diagnosis Date - Cholestasis of in third trimester 08/15/2015 - Chronic hypertension in 04/01/2015 - H/O: depression took Wellbutrin in the past - History of anxiety - Hypertension - Mental disorder history of anxiety and depression, currently off medication Previous Surgical History PAST SURGICAL HISTORY Procedure Laterality Date - EXTRACTION ERUPTED TOOTH/EXR 2011 wisdom teeth x 3 Family History FAMILY HISTORY Problem Relation Age of Onset - Cancer Mother ovarian CA - Alcohol/Drug Father - Psychiatry Father - atherosclerosis [OTHER] Father - Diabetes Paternal Grandmother Patient Allergies ALLERGIES No Known Allergies Current Medications Current Outpatient Prescriptions on File Prior to Visit: labetalol (TRANDATE) 100 mg tablet Take 1 tablet by mouth twice daily. clindamycin (CLEOCIN) 150 mg capsule Take 150 mg by mouth three times daily. Hydrochlorothiazide 12.5 mg capsule Take 1 capsule by mouth once daily. benzonatate (TESSALON PERLE) 100 mg capsule Take 2 capsules by mouth three times daily as needed. copper (PARAGARD T 380A) 380 square mm IUD INSERTED IN THE OFFICE No current facility-administered medications on file prior to visit. 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 HEENT: No sinus congestion, earache, sore throat. Cardiac: No chest pain, palpitations, shortness of breath Resp: No cough, wheeze. GI: No reflux symptoms, food intolerance, bowel changes. : No urinary frequency, dysuria. MS: No pain or joint complaints. PHYSICAL EXAMINATION BP 154/102 (BP Site: Left Arm, BP Position: Sitting, BP Cuff Size: Large Adult) Pulse 78 Wt 93.8 kg (206 lb 11.2 oz) BMI 34.86 kg/m2 Last 1 Encounter BP Readings: Date: BP: 11/08/2017 144/92 General: Alert and oriented, no distress, pleasant and cooperative. Heart: Regular, normal S1 and S2, no murmurs, rubs, or gallops Lungs: Clear to auscultation bilaterally Abdomen: Benign Extremities: Feet/ankles without edema, posterior tibial pulses full and symmetrical Health Maintenance List PAP EVERY 5 YEARS due on 07/23/2022 HPV EVERY 5 YEARS due on 07/23/2022 TETANUS due on 07/23/2025 INFLUENZA Completed Data reviewed Lab Results Component Value Date/Time CHOL 183 02/05/2016 11:11 AM HDL 43 (L) 02/05/2016 11:11 AM LDL 101 02/05/2016 11:11 AM Assessment/Plan: (I10) Essential hypertension (primary encounter diagnosis) Comment: Plan: labetalol (TRANDATE) 200 mg tablet Signed Prescriptions Disp Refills labetalol (TRANDATE) 200 mg tablet 60 tablet 2 Sig: Take 1 tablet by mouth twice daily. RTO: 3 mos Keisha Mcinytre MD ALLERGIES ALLERGIES DATE TYPE / CODE NAME / CODE REACTION SEVERITY SOURCE 09/06/2018 Drug Penicillins/[id number] Diarrhea Unknown [place] Allergy/416 0476(RXNORM) Community 692516([facility] ED CT) Repository 07/07/2018 Drug PENICILLINS DIARRHEA [facility] Class/97940 [facility] [place] 1003(SNOMED Repository CT) Drug NO KNOWN ALLERGIES [facility] Class/59679 [facility] 1003(SNOMED Repository CT) ENCOUNTERS ENCOUNTERS ADMIT/DISCHARGE ACCOUNT ADMITTING ENCOUNTER LOCATION SOURCE NUMBER CLASS 10/03/2018/10/04/19 [id number] Ambulatory [address] [place] Repository 09/14/2018/09/23/20 [id number] [facility] [place] Repository 09/06/2018/09/06/20 [id number] Emergency [place] Paul 18 [facility] ing:ED Repository 09/05/2018/09/05/20 [id number] [facility] [place] Repository 09/05/2018/09/06/20 [id number] [facility] [place] Repository 08/08/2018/08/08/20 [id number] [facility] [place] Repository 08/08/2018/08/09/20 [id number] [facility] [place] Repository 08/08/2018/08/09/20 [id number] [facility] [place] Repository 07/25/2018/07/25/20 [id number] [facility] [place] Repository 07/15/2018/07/18/20 [id number] [facility] [place] Repository 07/13/2018/07/13/20 [id number] [facility] [place] Repository 07/13/2018/07/14/20 [id number] [facility] [place] Repository 07/07/2018/07/07/20 [id number] [facility] [place] Repository 04/07/2018/04/08/20 [id number] [facility] [place] Repository 04/06/2018/04/08/20 [id number] [facility] [place] Repository 01/27/2018/01/28/20 [id number] [facility] [place] Repository 01/06/2018/01/08/20 [id number] [facility] [place] Repository 11/08/2017/11/08/19 [id number] [facility] [address] [place] Repository PAYERS PAYERS ENCOUNTER GUARANTOR PAYER SUBSCRIBER SOURCE 09/06/2018 SHELIA SHAFFER Primary SHELIA Castillooster [id number] Insurance:MEDICAL STUMPPDOB: [facility] [id number] Number: Repository [id number]: [phone] [id number] [phone] () Date:[id number] [address] [place] [id number]: 09/06/2018 Secondary NOT GIVENUNK [place] Insurance:SELF PAY [facility] Number: Effective Repository Date:2018-09-06
== END 2018-09-06 14:43 | disposition home or self-care (01) ==
LOC: ED 11:54
PROVIDERS: Emergency Provider Emergency Medicine; Family Provider Family Medicine; PCP Family Medicine
DX: O26.892 Other specified pregnancy related conditions, second trimester (principal); R10.9 Unspecified abdominal pain; R11.0 Nausea; O99.89 Other specified diseases and conditions complicating pregnancy, childbirth and the puerperium; R19.7 Diarrhea, unspecified; O10.912 Unspecified pre-existing hypertension complicating pregnancy, second trimester; Z3A.17 17 weeks gestation of pregnancy; Z79.82 Long term (current) use of aspirin; Z79.899 Other long term (current) drug therapy
CPT/HCPCS: 80053; 81001; 83690; 85025; 96360; 99283; J7030; A4216

== ENCOUNTER 2018-11-16 19:25 | Outpatient (CLI) | payer OTHER, SELFPAY ==
[2018-11-16 20:34] VITALS: BMI 36.6
[2018-11-16] MEDS: Acetaminophen 500 MG Tablet 1000 MG PO (21:01)
--- NOTE | 2018-11-17 11:51 | OB.TRI.NOTE ---
- Problem List (1) Fall Status: Acute History of Present Illness Date of Service: 11/16/18 Was patient seen by the physician?: No Reason For Visit: FALL Date of Service: 11/16/18 Gestational age: 27w4d History of Present Illness: Patient is a at 27 weeks and 4 days who called in stating she had fallen while given her son a bath, and hit her abdomen on the side of the tub. No contractions, vaginal bleeding, loss of fluid. Good movement. Allergies Penicillins [PCN] Adverse Reaction (Verified 11/16/18 20:39) Diarrhea NST - FHR Rate Baby A Baseline: 150 Variability:: Moderate Accelerations:: None Decelerations:: None NST Reactive:: Appropriate for gestational age Uterine Activity:: Quiet Impression/Plan Pt s/p fall - Was monitored for 4 hours after fall - No signs of abruption - Tracing reassuring for gestational age - Discharged home
== END 2018-11-17 02:00 | disposition home or self-care (01) ==
LOC: WPOUT 19:58 → WP 20:21
PROVIDERS: Family Provider Family Medicine; PCP Family Medicine; Referring Provider Obstetrics & Gynecology; Visit Provider Obstetrics & Gynecology
DX: Z04.3 Encounter for examination and observation following other accident (principal); W19.XXXA Unspecified fall, initial encounter; Y93.9 Activity, unspecified; Y92.9 Unspecified place or not applicable; Z3A.27 27 weeks gestation of pregnancy
CPT/HCPCS: 59025; 59050; 99218; G0378

== ENCOUNTER 2018-12-14 08:00 | Outpatient (RCR) | payer OTHER, SELFPAY | END 2018-12-22 23:59 | disposition home or self-care (01) | LOC: DC 08:00 | PROVIDERS: Family Provider Family Medicine; PCP Family Medicine; Referring Provider Obstetrics & Gynecology; Visit Provider Obstetrics & Gynecology | DX: O24.410 Gestational diabetes mellitus in pregnancy, diet controlled (principal) | CPT/HCPCS: 97802; G0108 ==

== ENCOUNTER 2019-01-23 19:05 | Inpatient (IN) | payer OTHER, SELFPAY ==
[2019-01-23 19:33] VITALS: BMI 37.7
[2019-01-23] MEDS: Lactated Ringers 1,000 ML 50 ML IV (19:55)
[2019-01-23 20:27] LABS: Absolute Lymphocyte Count 1.18 X10^3/ul (0.83-4.51); Absolute Neutrophil Count 4.5 X10^3/uL (2.0-7.7); Eosinophil# 0.09 X10^3/uL; Eosinophils% 1.5 % (0-5); Hematocrit 35.3 % (37-47); Hemoglobin 11.7 g/dl (12.0-15.0); Lymphocyte # 1.18 X10^3/ul (4.0); Lymphocyte % 19.3 % (19-41); Mean Corp Hgb Conc 33.1 g/gl (32-36); Mean Corpuscular Hgb 27.5 pg (27.0-32.0); Mean Corpuscular Volume 83.1 fL (81-99); Mean Platelet Vol. 11.3 fl (6.2-12.0); Monocyte# 0.36 X10^3/uL; Monocyte% 5.9 % (0-10); Neutrophil # 4.47 X10^3/uL (2.7-7.7); Neutrophil % 73.1 % (47-70); Platelet Count 177 K/mm3 (150-450); RBC Distribution Width CV 16.1 % (11.6-14.6); RBC Distribution Width SD 49.1 fl (35.1-43.9); Red Blood Count 4.25 M/mm3 (4.2-5.4); White Blood Count 6.1 K/mm3 (4.4-11.0)
[2019-01-23 20:31] LABS: POSITIVE COUNT NO; POSITIVE DIFFERENTIAL NO; POSITIVE MORPHOLOGY NO
[2019-01-23] MEDS: 0.9% Normal Saline 100 ML IV.SOLN. INTRA-UTER (20:53)
[2019-01-23 21:00] LABS: Bedside Glucose 90 mg/dL (70-110)
--- NOTE | 2019-01-23 21:07 | PCM.HP.OB ---
- Problem List (1) Chronic hypertension affecting Status: Chronic (2) Cholestasis during in third trimester Status: Acute (3) Gestational diabetes mellitus, diet-controlled Status: Acute Qualifiers: Trimester: third trimester Qualified Code(s): O24.410 - Gestational diabetes mellitus in , diet controlled (4) Positive GBS test Status: Acute (5) Anemia complicating , third trimester Status: Acute (6) Anxiety with depression Status: Chronic History Date of Admission: 01/23/19 Final ORTEGA: 02/11/19 Final ORTEGA Source: US <20 weeks Gestational age: 37 Weeks and 2 Days History of this : This is a 33 year-old, G [2], P [1], at 37+ weeks gestational age presenting to triage for IOL tonight for CHTN, A1GDM and Cholestasis of . Patient's course was initiated at 9 weeks x 14 visits. Her course has been complicated by anemia which required receipt of IV iron, diagnosis or Gestational Diabetes that has been controlled by diet and exercise and by diagnosis of Cholestasis which she takes Actogall 300mg PO daily. Patient has known HTN, she takes 100mg Labetalol PO q AM and 200mg Labetalol PO QHS. Allergies Penicillins [PCN] Adverse Reaction (Verified 11/16/18 20:39) Diarrhea Home Medications: Home Medications Ursodiol 300 mg PO BID 09/23/15 Labetalol HCl 100 mg PO DAILY 11/16/18 Labetalol [Trandate (Beta Pat)] 200 mg PO DAILY 11/16/18 Prenatabs FA 1 tab PO DAILY 11/16/18 Zoloft 1 tab PO DAILY 11/16/18 Aspirin [Aspirin, Baby] 81 mg PO DAILY@0800 01/23/19 Cholecalciferol (Vitamin D3) [Vitamin D3] 2,000 unit PO 01/23/19 Iron,Carbonyl [Iron Chews] 15 mg PO 01/23/19 Smoking Status: Never smoker Alcohol: None Number of Fetus(es): 1 Heart Tracing: Baseline 150, moderate variability, + accels, no decels TOCO Analysis: Ctx q 2-3 minutes, mildly palpable History Past Pregnancies: Past Pregnancies Delivery Date Name GA/Weeks Outcome Route Weight Infant Gender Labor Length Anesthesia Delivery Location Provider FOB 09/24/15 37+ wks - IOL cholestasis Live 7#5oz Male Epidural Labs: See [facility] Record for detailed NOB bloodwork GBS Pos - PCN intolerance reported by patient, will give Ancef. A+ Abs Neg, HIV NR, Syphilis NR, Rubella Immune, HepBsAg Neg, 1 hour GCT elevated with subsequent elevated 3 hour GTT, Urine Tox Neg, Urine Culture Neg, GC/CT Neg/Neg, Bile Acids Elevated, Hgb = 10.0 --> 10.0 --> 9.9 --> 11.8 (after iron infusion) Expected Infant Delivery Method: Spontaneous Vaginal Describe any other labor & delivery plans:: Plan for epidural Number of Visits: 14 Review of Systems Constitutional: Denies: Chills, Fever, Weight Change Eyes: Denies: Double vision HEENT: Denies: Head Aches, Sinus Congestion, Sinus Drainage Cardiovascular: Denies: Chest Pain, Palpitations Respiratory: Denies: Cough, Shortness of breath at rest, Sputum production Gastrointestinal: Denies: Abdominal Pain, Nausea, Vomiting Genitourinary: Denies: Dysuria Gynecological: Denies: Vaginal bleeding, Vaginal discharge Musculoskeletal: Denies: Joint Pain, Joint Tenderness Skin: Denies: Rash, Wounds Neurological: Denies: Numbness, Tingling, Focal weakness Psychiatric: Denies: Anxiety, Depression, Homicidal Ideations, Suicidal Ideations Hematologic/ Lymphatic: Denies: Easy Bruising, Easy Bleeding Physical Exam Vitals: See Nursing Note for Vitals - patient is normotensive and afebrile General: Alert, Oriented x3, No apparent distress HEENT: Atraumatic, Normocephalic. Negative for: Thyromegaly, Lymphadenopathy Cardiovascular: Regular rate, Regular Rhythm Lungs: Normal air movement Abdomen: Soft, Non Tender, Gravid - EFW = 7.5# Extremities:: No edema, No tenderness/swelling Neurological: Deep Tendon Reflexes 2+/4 and Symmetrical, Neuro grossly intact PROVIDER ENGAGEMENT EXECUTIVE: Normal external genitalia. Negative for: Vulvar lesions Estimated gestational size: Appropriate for gestational size Presentation: Cephalic Cervix Dilation (cm): 1 - Cervix midposition and moderately soft Station: -3 Effacement (%): 40 Assessment/Plan All Active Problems Fall (Acute) Cholestasis during in third trimester (Acute) Gestational diabetes mellitus, diet-controlled (Acute) Positive GBS test (Acute) Anemia complicating , third trimester (Acute) This is a 33 year-old, G [2], P [1], at 37 weeks gestational age, IOL for CHTN, A1GDM, and Cholestasis, Category I FHT. P: 1) Admit patient 2) Cervical cifuentes catheter placed per without difficulty 3) Start IV pitocin for labor augmentation if contractions space out >4 minutes apart 4) Dr. Granados aware of induction 5) Reassess cervix PRN for cervical change Margarita ACUNA
[2019-01-23 21:41] LABS: Bedside Glucose 104 mg/dL (70-110)
--- NOTE | 2019-01-23 21:49 | PCM.PN.BLA ---
Progress Note Addendum: Cervical cifuentes bulb catheter has come out - patient continues to contract q 2-3 minutes. Cervical exam /3. Will hold pitocin at this time. Plan to start pitocin in morning if patient is not in active labor. Margarita Mascorro APRN-CNM
[2019-01-23] MEDS: Labetalol 200 MG Tablet PO (22:05)
[2019-01-24 01:21] LABS: Bedside Glucose 79 mg/dL (70-110)
[2019-01-24] MEDS: Cefazolin 1 GM/50 ML BAG IV (05:02)
[2019-01-24] MEDS: Lactated Ringers 1,000 ML 50 ML IV ×2 (05:03→08:44)
[2019-01-24] MEDS: URSODIOL 300 MG CAPSULE PO (05:03)
[2019-01-24] MEDS: Oxytocin 30 units/NS 500 ml 30 UNITS/500 ML IV.SOLN IV (05:03)
[2019-01-24] MEDS: fentaNYL-bupivacaine (epidural) 100 ML BAG EPIDURAL (05:50)
[2019-01-24 06:41] LABS: Bedside Glucose 90 mg/dL (70-110)
--- NOTE | 2019-01-24 08:18 | PCM.PN.BLA ---
Progress Note pt seen at bedside, doing well. pt reports comfortable with epidural in place. AROM performed- large amt of clear fluid. FHR 135 mod dilcia + accels no decels. Cat 1 reactive. [place] q2-3 min. Continue pitocin. anticipate nvsd.
[2019-01-24 09:21] LABS: Bedside Glucose 83 mg/dL (70-110)
[2019-01-24] MEDS: Labetalol 100 MG Tablet PO (10:04)
[2019-01-24] MEDS: Sertraline 50 MG Tablet PO (10:04)
[2019-01-24] MEDS: Oxytocin 30 units/NS 500 ml 30 UNITS/500 ML IV.SOLN 334 UNITS IV (11:03)
--- NOTE | 2019-01-24 11:11 | PCM.OPRPT ---
Vaginal Delivery Maternal Presentation: Medically Indicated Induction - Cholestasis of , CHTN, GDMA1 Method of Induction: Pitocin, Haro Bulb Amniotic Membrane Rupture Type: Artificial Amniotic Fluid Description: Clear Final ORTEGA: 02/11/19 Final ORTEGA Source: LMP Gestational age: 37 Weeks and 3 Days Date of Procedure: 01/24/19 Pre-Operative Diagnosis: term gestation, CHTN, Cholestasis of , GDMA1 Post-Operative Diagnosis: same, live male infant Surgery/ Procedure Performed: Spontaneous Vaginal Delivery Type of Anesthesia: Epidural Description of Procedure: of live male infant. Nuchal x 1- Loose- reduced at time of delivery. head delivered followed by spontaneous shoulder delivery with good maternal effort and gentle downward traction. body delivered without complication. Nuchal reduced after delivery of infant- Father of baby assisted once shoulders were delivered. Delayed cord clamping performed. Presentation: Vertex Placental Delivery Description: Spontaneous Placenta Disposition: [facility] Cord Vessel Description: 3 Vessels Nuchal Cord Compression: With compression Cord Entanglement: Around neck x 1, loose Drain: Haro to straight drain Estimated Blood Loss: 250 A gender: Male (1 minute): 8 (5 minute): 9 Episiotomy Description: None Laceration: None Medications given after delivery: IV Pitocin Complications: None
[2019-01-24] MEDS: Oxytocin 30 units/NS 500 ml 30 UNITS/500 ML IV.SOLN 167 UNITS IV (11:33)
[2019-01-24 11:51] LABS: Bedside Glucose 75 mg/dL (70-110)
[2019-01-24] MEDS: 0.9% Saline Lock 10 ML Syringe IV ×2 (12:48→14:29)
[2019-01-24] MEDS: Ibuprofen 600 MG Tablet PO ×2 (14:29→20:33)
[2019-01-24] MEDS: Ondansetron 4 MG/2 ML Vial IV (14:29)
[2019-01-24 14:30] VITALS: BP 122/78; PULSE 107; RESP 16; TEMP 36.6
[2019-01-24] MEDS: Acetaminophen 500 MG Tablet 1000 MG PO (18:37)
[2019-01-24 18:41] VITALS: BP 140/83; PULSE 72; RESP 16; TEMP 36.7
[2019-01-24 20:43] VITALS: BP 127/76; PULSE 85; RESP 18; TEMP 36.3; O2SAT 97
[2019-01-24 22:00] VITALS: BP 124/74; PULSE 80; RESP 16; TEMP 36.6
[2019-01-24] MEDS: Labetalol 200 MG Tablet PO (22:18)
[2019-01-25 02:00] VITALS: BP 129/70; PULSE 79; RESP 18; TEMP 36.8
[2019-01-25 04:50] VITALS: BP 124/67; PULSE 85; RESP 18; TEMP 36.8
[2019-01-25] MEDS: Ibuprofen 600 MG Tablet PO ×3 (06:45→19:15)
[2019-01-25 07:38] VITALS: BP 136/78; PULSE 73; RESP 16; TEMP 36.6
[2019-01-25] MEDS: Labetalol 100 MG Tablet PO (09:55)
[2019-01-25] MEDS: Sertraline 50 MG Tablet PO (09:55)
--- NOTE | 2019-01-25 13:03 | PN.OBGYN_ITS ---
Patient Problems: Active and Suspected Problems Cholestasis during in third trimester (Acute) Gestational diabetes mellitus, diet-controlled (Acute) Positive GBS test (Acute) Anemia complicating , third trimester (Acute) Subjective: Doing well per patient and nursing staff. Ambulating and taking PO without diff iculty. Voiding and passing flatus. Denies any headaches, visual changes, chest pain, SOB, increased vaginal bleeding or clots. Lochia normal. Pain controlled with Motrin and Tylenol. Planning D/C home tomorrow. Baby in special care nursery for blood sugars. - Physical Exam General: Alert, Oriented x3 HEENT: Atraumatic, Normocephalic Lungs: Clear to auscultation, Normal air movement, No rhonchi, No wheeze Cardiovascular: Regular rate, Regular Rhythm, No murmurs Abdomen: Bowel Sounds Present, Soft, Non Tender, - - Fundus firm Extremities: No edema Psych/Mental Status: Normal Affect, Appropriate Vital Signs Temp Pulse Resp BP Pulse Ox 97.8 F 73 16 136/78 H 97 01/25/19 07:38 01/25/19 07:38 01/25/19 07:38 01/25/19 07:38 01/24/19 20:43 Oxygen Delivery Method Room Air Weight: 219 lb 9.286 oz Body Mass Index (BMI) 37.7 Intake and Output for Last 24 Hours 01/23/19 01/24/19 01/25/19 23:59 23:59 23:59 Intake Total 3535 / 3535 Output Total 2200 / 2200 Balance 1335 / 1335 Medical Necessity - Tobacco Use Smoking Status: Never smoker Assessment/Plan All Active Problems Fall (Acute) Cholestasis during in third trimester (Acute) Gestational diabetes mellitus, diet-controlled (Acute) Positive GBS test (Acute) Anemia complicating , third trimester (Acute) A:PPD #1 P: 1) Routine and instructions. 2) Pain management 3) BP stable. 4) Planning D/C home tomorrow.
[2019-01-25 13:14] VITALS: BP 134/76; PULSE 77; RESP 18; TEMP 36.3
[2019-01-25 19:24] VITALS: BP 134/88; PULSE 74; RESP 15; TEMP 36.9
[2019-01-25] MEDS: Labetalol 200 MG Tablet PO (21:50)
[2019-01-26 02:39] VITALS: BP 119/65; PULSE 81; RESP 16; TEMP 36.8
[2019-01-26] MEDS: Ibuprofen 600 MG Tablet PO ×2 (07:32→17:55)
[2019-01-26 07:38] VITALS: PULSE 86; RESP 16; O2SAT 99
[2019-01-26 07:54] VITALS: BP 136/73; PULSE 86; RESP 16; TEMP 36.4; O2SAT 99
--- NOTE | 2019-01-26 09:08 | DCINST_ITS ---
Discharge Diet: No Restrictions Discharge Activity: Return to Normal Activity, May not drive while taking narcotic pain medications., May Shower May resume sexual activity in: 4-6 weeks Additional Activity Instructions:: Nothing in the vagina for 4-6 weeks. You may return to work/school in 6 weeks. Call your doctor if your incision/area has: Continuous Slow Oozing, Sudden Increased Bleeding, Increased Pain/ Swelling, Increased Redness, Foul Smelling Discharge Additional Instructions: If you experience any of the following, contact your healthcare provider. * Bleeding that soaks a pad every hour for 2 hours * Fever 100.4 or higher * Unrelieved incision or abdominal pain * Swelling, redness, discharge or bleeding from your incision or episiotomy site * Your incision begins to separate * Problems urinating (including inability to urinate or burning while urinating). * Visual changes * Severe headache * Flu-like symptoms * Pain or redness in one of both of your breasts * Pain, warmth, tenderness or swelling in your legs, especially the calf area * Frequent nausea and vomiting * Symptoms of depression or anxiety If you experience any of the following, call 911 or go to the nearest Emergency Room. * Chest pain * Problems breathing * Seizure activity * Partial or complete paralysis of a body part, slurred speech, weakness or drooping of the face, or a sudden inability to walk or hold your balance Allergies/Adverse Reactions: Allergies Penicillins [PCN] Adverse Reaction (Verified 11/16/18 20:39) Diarrhea Medications to take at Discharge Labetalol HCl 100 mg PO DAILY 11/16/18 Labetalol [Trandate (Beta Pat)] 200 mg PO QHS 11/16/18 Prenatabs FA 1 tab PO DAILY 11/16/18 Cholecalciferol (Vitamin D3) [Vitamin D3] 2,000 unit PO 01/23/19 Iron,Carbonyl [Iron Chews] 15 mg PO 01/23/19 Sertraline HCl 50 mg PO DAILY 01/24/19 Ibuprofen [Motrin] 800 mg PO Q8H PRN PRN #30 tablet 01/26/19 The following prescriptions were given: Ibuprofen [Motrin] 800 mg PO Q8H PRN PRN #30 tablet PRN Reason: Pain Please Follow Up With: Samaria Barnes MD - [phone] When: Call to make an appointment with your doctor in 1-2 and 6 weeks Primary Care Physician: Alexey Delgado [Primary Care Provider] - Test Results: Test results from this visit will be discussed in further detail at your follow- up appointment, if applicable.
[2019-01-26] MEDS: Labetalol 100 MG Tablet PO (09:50)
[2019-01-26] MEDS: Sertraline 50 MG Tablet PO (09:51)
[2019-01-26 09:53] VITALS: BP 164/87; PULSE 75; RESP 16; TEMP 36.5; O2SAT 96
--- NOTE | 2019-01-26 11:51 | PN.OBGYN_ITS ---
Patient Problems: Active and Suspected Problems Cholestasis during in third trimester (Acute) Gestational diabetes mellitus, diet-controlled (Acute) Positive GBS test (Acute) Anemia complicating , third trimester (Acute) Subjective: pt seen at bedside, doing well. pt reports good pain control. lochia mild .Andi le feeding. - Physical Exam General: Alert, Oriented x3 Abdomen: Soft, Non Tender, Non-Distended, - - fundus firm Extremities: No Calf Tenderness Vital Signs Temp Pulse Resp BP Pulse Ox 97.7 F L 75 16 164/87 H 96 01/26/19 09:53 01/26/19 09:53 01/26/19 09:53 01/26/19 09:53 01/26/19 09:53 Oxygen Delivery Method Room Air Weight: 99.6 kg Body Mass Index (BMI) 37.7 Intake and Output for Last 24 Hours 01/24/19 01/25/19 01/26/19 23:59 23:59 23:59 Intake Total 3535 / 3535 Output Total 2200 / 2200 Balance 1335 / 1335 Medical Necessity - Tobacco Use Smoking Status: Never smoker Assessment/Plan All Active Problems Fall (Acute) Cholestasis during in third trimester (Acute) Gestational diabetes mellitus, diet-controlled (Acute) Positive GBS test (Acute) Anemia complicating , third trimester (Acute) PPD #2, doing well routine care pain mgmt dc home
[2019-01-26 14:02] VITALS: BP 131/82; PULSE 76; RESP 14; TEMP 36.5; O2SAT 95
--- NOTE | 2019-01-26 17:15 | NURSING ---
Mom hopes to be going home soon and hopes to be when she gets home. Mom has a pump too. Encouraged to call if any further questions or concerns. Telehealth flyer given in case that might work for her. Polina ROMERO IBCLC
[2019-01-26 19:00] VITALS: BP 138/62; PULSE 88; RESP 16; TEMP 36.7
== END 2019-01-26 19:00 | disposition home or self-care (01) | DRG 805 ==
PROVIDERS: Admitting Provider Obstetrics & Gynecology; Family Provider Family Medicine; PCP Family Medicine; Referring Provider Obstetrics & Gynecology; Visit Provider Obstetrics & Gynecology
DX: O16.4 Unspecified maternal hypertension, complicating childbirth (principal); O24.420 Gestational diabetes mellitus in childbirth, diet controlled; O99.824 Streptococcus B carrier state complicating childbirth; O26.62 Liver and biliary tract disorders in childbirth; K83.1 Obstruction of bile duct; O99.02 Anemia complicating childbirth; O69.81X0 Labor and delivery complicated by cord around neck, without compression, not applicable or unspecified; O99.344 Other mental disorders complicating childbirth; F41.8 Other specified anxiety disorders; Z79.82 Long term (current) use of aspirin; Z79.899 Other long term (current) drug therapy; Z3A.37 37 weeks gestation of pregnancy; Z37.0 Single live birth
CPT/HCPCS: 59025; 59050; 82962; 85025; 86850; 86900; 99218; J7120; A4216; G0378; J2405

== ENCOUNTER 2020-12-20 08:00 | Outpatient (RCR) | payer OTHER, SELFPAY | END 2021-03-04 23:59 | LOC: IMMUN 08:00 | PROVIDERS: PCP Family Medicine; Visit Provider Family Medicine | DX: Z23 Encounter for immunization (principal) | CPT/HCPCS: 0001A; 0002A; 91300 ==